=== PATIENT | female | born 1990 | race Caucasian/White ===

== ENCOUNTER → 2020-03-20 15:56 | Outpatient (BNVA) | payer OTHER, SELFPAY | PROVIDERS: PCP Internal Medicine; Visit Provider Advanced Practice Midwife | DX: Z39.2 Encounter for routine postpartum follow-up (principal) | CPT/HCPCS: 99212 ==

== ENCOUNTER → 2020-06-02 09:28 | Outpatient (BNVA) | payer OTHER, SELFPAY | PROVIDERS: PCP Internal Medicine; Visit Provider Advanced Practice Midwife | DX: Z30.430 Encounter for insertion of intrauterine contraceptive device (principal) | CPT/HCPCS: 58300; 81025; J7298 ==

== ENCOUNTER 2020-06-17 10:28 | Outpatient (REF) | payer OTHER, SELFPAY ==
[2020-06-17 12:32] LABS: MANUAL DIFF FLAG NO
[2020-06-17 12:40] LABS: Basophils Absolute Auto 0.1 X10*3/uL (0.0-0.2); Basophils Percent Auto 0.5 % (0-2); Eosinophils Absolute Auto 0.1 X10*3/uL (0.0-0.4); Eosinophils Percent Auto 0.5 % (0-4); Hematocrit 42.5 % (37-47); Imm Gran Abs Auto 0.05 X10*3/uL (0.00-0.03); Imm Gran Pct Auto 0.4 % (0.0-0.4); Lymphocytes Percent Auto 17.4 % (20-40); Mean Corpuscular HGB Conc 32.9 g/dl (31.0-35.0); Mean Corpuscular Hemoglobin 28.9 pg (27.0-33.0); Mean Corpuscular Volume 87.6 fL (80-98); Mean Platelet Volume 11.7 fL (9.4-12.3); Monocytes Absolute Auto 0.8 X10*3/uL (0.1-1.2); Monocytes Percent Auto 6.6 % (2-11); Neutrophils Absolute Auto 8.5 X10*3/uL (2.0-8.3); Neutrophils Percent Auto 74.6 % (45-73); Platelet Count 252 X10*3/uL (160-400); Red Blood Count 4.85 X10*6/uL (4.20-5.50); Red Cell Distribution Width 12.8 % (11.0-16.0); White Blood Count 11.4 X10*3/uL (4.8-10.8)
[2020-06-17 13:00] LABS: Alanine Aminotransferase 41 U/L (0-31); Albumin Level 4.5 g/dL (3.5-5.0); Alkaline Phosphatase 103 U/L (39-117); Anion Gap 11 (12-20); Aspartate Amino Transferase 24 U/L (5-31); Bilirubin Total 0.7 mg/dL (0.0-1.0); Blood Urea Nitrogen 14 mg/dL (9-16); Calcium 9.3 mg/dL (8.4-10.2); Carbon Dioxide 27 mmol/L (22-29); Chloride 104 mmol/L (96-108); Cholesterol 157 mg/dL; Estimated Glomerular Filt Rate > 60; Glucose Random 92 mg/dL (60-115); HDL Cholesterol 40 mg/dL; LDL Cholesterol Calculated 92 mg/dl; Potassium 4.1 mmol/L (3.3-5.1); Sodium 138 mmol/L (135-145); Total Protein 7.3 g/dL (6.5-8.0); Triglycerides 127 mg/dL
[2020-06-17 13:22] LABS: Thyroid Stimulating Hormone 1.11 uIU/mL (0.32-4.0)
[2020-06-18 11:21] LABS: BV Int Neg Control Negative (Negative); BV Int Pos Control Positive (Positive)
== END 2020-06-17 10:29 | disposition home or self-care (01) ==
LOC: HO.LAB 10:28
PROVIDERS: PCP Internal Medicine; Referring Provider Internal Medicine; Visit Provider Advanced Practice Midwife
DX: R10.2 Pelvic and perineal pain (principal); Z97.5 Presence of (intrauterine) contraceptive device; Z00.00 Encounter for general adult medical examination without abnormal findings; Z13.31 Encounter for screening for depression; G44.209 Tension-type headache, unspecified, not intractable; L60.0 Ingrowing nail; R63.5 Abnormal weight gain
CPT/HCPCS: 36415; 80053; 80061; 81025; 84443; 85025; 87480; 87510; 87660; 99212

== ENCOUNTER 2020-07-08 12:30 | Outpatient (REF) | payer OTHER, SELFPAY ==
--- NOTE | ~2020-07-08 | XR_ITS ---
EXAMINATION: XR FOOT LT MIN 3V, XR ANKLE LT MIN 3V CLINICAL INFORMATION: Pain left ankle COMPARISON: None. TECHNIQUE: AP, oblique, and lateral views left foot. AP and oblique views left ankle. FINDINGS: Distal tibia and fibula are intact. No widening of the ankle mortise. Talar dome intact. Normal appearance of the foot. No fracture, dislocation, or malalignment. XR/XR foot LT min 3V IMPRESSION: Normal radiographs of the left foot and ankle.
--- NOTE | ~2020-07-08 | XR_ITS ---
EXAMINATION: XR FOOT LT MIN 3V, XR ANKLE LT MIN 3V CLINICAL INFORMATION: Pain left ankle COMPARISON: None. TECHNIQUE: AP, oblique, and lateral views left foot. AP and oblique views left ankle. FINDINGS: Distal tibia and fibula are intact. No widening of the ankle mortise. Talar dome intact. Normal appearance of the foot. No fracture, dislocation, or malalignment. XR/XR ankle LT min 3V IMPRESSION: Normal radiographs of the left foot and ankle.
== END 2020-07-08 12:31 | disposition home or self-care (01) ==
LOC: HO.XRAY 12:30
PROVIDERS: PCP Internal Medicine; Visit Provider Internal Medicine
DX: M25.572 Pain in left ankle and joints of left foot (principal)
CPT/HCPCS: 73610; 73630

== ENCOUNTER 2020-07-10 07:23 | Outpatient (REF) | payer OTHER, SELFPAY ==
--- NOTE | ~2020-07-10 | XR_ITS ---
EXAMINATION: XR SHOULDER, LEFT CLINICAL INFORMATION: Shoulder pain. COMPARISON: 12/02/2018 TECHNIQUE: AP external rotation, Grashey, scapular Y, and axillary views of the left shoulder. FINDINGS: Acromioclavicular joint is intact. Redemonstrated is a chronic Hill-Sachs deformity of the humeral head. Glenohumeral joint space is maintained. No acute fracture or dislocation. Redemonstrated are presumed postoperative changes in the proximal humeral shaft. Visualized left lung is clear. XR/XR shoulder LT min 2V IMPRESSION: No evidence of acute osseous abnormality. Chronic Hill-Sachs deformity of the humeral head, and presumed postoperative changes in the proximal humeral shaft.
== END 2020-07-10 07:24 | disposition home or self-care (01) ==
LOC: HO.XRAY 07:23
PROVIDERS: PCP Internal Medicine; Visit Provider Physician Assistant
DX: M25.312 Other instability, left shoulder (principal)
CPT/HCPCS: 73030; 99212

== ENCOUNTER → 2020-07-29 10:26 | Outpatient (BNVA) | payer OTHER, SELFPAY | PROVIDERS: PCP Internal Medicine; Visit Provider Physician Assistant | DX: M76.72 Peroneal tendinitis, left leg (principal) | CPT/HCPCS: 99212 ==

== ENCOUNTER 2020-08-20 10:00 | Outpatient (RCR) | payer OTHER, SELFPAY ==
--- NOTE | 2020-07-21 13:14 | MHC.PT.EP ---
[facility] [place] Office [place] Office [place] Office [address] [phone] F: [phone] F: [phone] F: [phone] F: [phone] Physical Therapy Plan of Care Date of Evaluation: 07/21/20 Date of Surgery: 2018 Diagnosis: Other instability, L shoulder. s/p capsular plication 06/2018 Assessment: Pt is a 29 y/o RHD F with chief compliant of (L) shoulder instability beginning over last several months. PMH is significant for (L) shoulder dislocation x2 with (L) shoulder capsular plication surgery in 2019 and chronic hill-sachs deformity. Pt presents to PT today with shoulder/periscapular weakness, general shoulder hypermobility, and postural abnormalities. Additionally, pt notes popping sensation with mid-trapezius MMT testing. Pt symptoms are consistent with shoulder instability that interferes with end range movement and dynamic activity. Pt will benefit from skilled PT 2x/week for 6 weeks to improve shoulder and periscapular strength and reduce pain to aid in dynamic movement, return to active lifestyle, providing for children, and ADLs. Frequency and Duration: The patient will be seen 2x/week for 6 weeks Short Term Goals: 3 Weeks: 1) Pt will be independent in HEP to maintain gains between sessions 2) Pt will be able to self identify and correct posture Fpc Goals: 6 Weeks: 1) Pt shoulder MMT will be >4/5 to aid in shoulder stability. 2) Pt will SPADI will be <10/130 to demonstrate meaningful improvement in daily function (currently 23/130) 3.) Pt will be able to don/doff clothing with no episodes of instability Treatment Plan: Modalities to reduce pain, spasms and effusion. Manual therapy to restore motion and function. Therapeutic exercise to improve strength and flexibility. Neuromuscular re-education for posture and balance. Therapeutic activities to return to functional activities of daily living. Electronically signed by: Brisa Izaguirre PT Please sign and return to therapist. Thank you for your referral.
--- NOTE | 2020-09-01 11:57 | MHC.PT.DC ---
[facility] [place] Office [place] Office [place] Office [address] Hansel Miranda [address] [phone] F: [phone] F: [phone] F: [phone] F: [phone] Physical Therapy Discharge Report Diagnosis: Other instability, L shoulder. s/p capsular plication 06/2018 Date of Surgery: 2018 Date of Evaluation: 07/21/20 Date of Discharge: 09/01/20 Treatments to Date: 7 Cancellations to Date: 4 No Shows to Date: 2 Discharge Status: Improved Function Independent with HEP Visit Non-compliance Discharge Summary: Pt did not f/u with final visits and is d/c at this time due to noncompliance with scheduling policy. At time of last attended visit, pt reported fatigue w/ RTC strengthening today described as a muscle burning. pt educated to ensure she has adequate rest between sets. pt verbalized understanding. pt discouraged as she feels many of the exercises are harder than they should be. Educated pt that here in physical therapy the therapist selects exercises they know are going to be challenging for our patients in order to promote strength, stability, and impairment level gains to improve overall function. pt seemed content w/ this response. pt may benefit from more CKC activities to promote stability in plantigrade or quadruped per her tolerance next visit. Electronically signed by: Brisa Izaguirre PT, DPT Please sign and return to therapist. Thank you for your referral.
== END 2020-09-01 11:57 | disposition home or self-care (01) ==
LOC: HO.PT 10:00
PROVIDERS: PCP Internal Medicine; Visit Provider Physician Assistant
DX: M25.312 Other instability, left shoulder (principal)
CPT/HCPCS: 97110; 97112; 97161

== ENCOUNTER → 2020-08-21 09:05 | Outpatient (BNVA) | payer OTHER, SELFPAY | PROVIDERS: PCP Internal Medicine; Visit Provider Physician Assistant | DX: M25.312 Other instability, left shoulder (principal) | CPT/HCPCS: 99212 ==

== ENCOUNTER 2020-08-27 13:25 | Outpatient (REF) | payer OTHER, SELFPAY ==
--- NOTE | ~2020-08-27 | MR_ITS ---
EXAMINATION: MRI SHOULDER WITHOUT CONTRAST, LEFT CLINICAL INFORMATION: Instability left shoulder. Patient reports pain, weakness, dislocation x3. Patient reports prior surgery 2018. COMPARISON: X-ray left shoulder 07/10/2020. MRI 05/18/2018. TECHNIQUE: MRI of the shoulder without contrast is performed in a 1.5 Felisa high-field scanner. FINDINGS: CORACOACROMIAL ARCH: No significant acromioclavicular arthritis. No significant fluid in the subacromial subdeltoid space. Undersurface of the acromion is mildly curved, with no subacromial spur. ROTATOR CUFF: Intact. No muscle atrophy or fatty infiltration. BICEPS TENDON: Status post tenodesis. LABRUM/CAPSULE: Evidence of prior surgery, with screw/screw tract in the superior glenoid, and probably in the inferior glenoid as well. The superior labrum is small in caliber, with irregularity of the free edge, with T2 signal at the cartilage labral interface extending to the base of the labrum. The anterior labrum is difficult to visualize, with the middle glenohumeral ligament subjacent to the labrum. There is intermediate T2 signal in the expected region of the labrum, with apparent irregularity in the midportion. These findings could represent postsurgical changes, or could represent a residual or recurrent tear. Mild intermediate signal in the the region of the inferior glenohumeral ligament/capsule, evaluation limited by lack of distention. GLENOHUMERAL JOINT/MARROW: Chronic Hill-Sachs lesion in the posterior lateral humeral head. This measures approximately 1.8 cm transverse, 2.1 cm craniocaudal, depth approximately 0.7 cm. No acute marrow edema is seen. No definite bony Hill-Sachs lesion is identified. No focal cartilage defects. No significant effusion. MR/MR shoulder LT wo con IMPRESSION: 1. Chronic Hill-Sachs lesion measuring 1.8 x 2.1 x 0.7 cm. 2. Postsurgical changes in the glenoid from prior surgery. Findings in the superior labrum, and anterior labrum, with signal morphological changes as detailed above. These findings could represent postsurgical changes or represent residual/recurrent tear. 3. Mild intermediate T2 signal changes in the inferior glenohumeral ligament/capsule, evaluation limited by lack of distention.
== END 2020-08-27 13:26 | disposition home or self-care (01) ==
LOC: HO.MRI 13:25
PROVIDERS: Visit Provider Physician Assistant
DX: M25.312 Other instability, left shoulder (principal)
CPT/HCPCS: 73221

== ENCOUNTER → 2020-09-10 09:49 | Outpatient (BNVA) | payer OTHER, SELFPAY | PROVIDERS: Visit Provider Physician Assistant ==

== ENCOUNTER 2020-10-07 06:39 | Day surgery (SDC) | payer OTHER, SELFPAY ==
--- NOTE | 2020-10-05 13:36 | HO.ANESPROP2 ---
Documented by User: Diana Sherman 10/05/20 13:36 HPI - Anesthesia Eval Consult details Narrative: 29yo F for Left Shoulder Arthroscopy with capsular plication,poss labrum repair PMFSH Active Problems Active Problems: All Active Problems (Updated 07/29/20 @ 10:54 by Timbo Sebastian PA-C) Peroneal tendinitis of left lower leg (Acute) Other instability, left shoulder (Acute) Left shoulder pain (Acute) Encounter for assessment (Acute) Past Medical History Medical History History of asthma IUD (intrauterine device) in place Family History Family History Mother Heart attack Stroke Surgical History Surgical History Hx of cholecystectomy Hx of shoulder surgery Social History Social History Alcohol intake: current Use of substances other than those prescribed or required for medical reasons: Yes Have you been hit, kicked, punched, or otherwise hurt by someone within the past year? If so, by whom?: No Are you DNR?: No Advance Directives: No Advance Directives Information Provided: Yes Current occupational status: unemployed Current occupation: right handed Sexual orientation: Straight/Heterosexual Gender identity: female Meds Allergies Allergy/AdvReac Type Severity Reaction Status Date / Time No Known Allergies Allergy Verified 07/29/20 10:32 [No Known Allergies*] Exam Exam Date and Time: October 05, 2020 1336 Narrative Narrative: Laboratory Tests 06/17/20 06/17/20 11:45 11:45 WBC 11.4 H Hgb 14.0 Hct 42.5 Plt Count 252 Sodium 138 Potassium 4.1 Chloride 104 Carbon Dioxide 27 BUN 14 Creatinine 0.80 Assessment and Plan Assessment Anesthesia Assessment: Chart Reviewed Documented by User: Ev Claros 10/07/20 09:03 PMFSH Past Medical History Medical History History of asthma IUD (intrauterine device) in place Family History Family History Mother Heart attack Stroke Family history of problems with anesthesia: No Surgical History Surgical History Hx of cholecystectomy Hx of shoulder surgery History of Problems with Anesthesia: No Social History Social History Alcohol intake: current Use of substances other than those prescribed or required for medical reasons: Yes Have you been hit, kicked, punched, or otherwise hurt by someone within the past year? If so, by whom?: No Are you DNR?: No Advance Directives: No Advance Directives Information Provided: Yes Current occupational status: unemployed Current occupation: right handed Sexual orientation: Straight/Heterosexual Gender identity: female Meds Allergies Allergy/AdvReac Type Severity Reaction Status Date / Time No Known Allergies Allergy Verified 07/29/20 10:32 [No Known Allergies*] Exam Height,Weight and Vital Signs: Vital Signs Temp Pulse Resp BP Pulse Ox 10/07/20 06:51 97.6 F 70 18 127/82 98 Pertinent Lab Results Pertinent Lab Results: Laboratory Results - last 24 hr 10/07/20 06:40 Urine Test NEGATIVE Airway Mallampati Class: I TM Dist: >3cm Neck ROM: Full Heart: RRR Lungs: CTAB Assessment and Plan Assessment Anesthesia Assessment: Anesthesia Plan Discussed and Chart Reviewed Final Anesthetic Review NPO: Yes ASA Class: II Final Preanesthetic Review: No Changes in Pt Med Stat, Meds/Allgs Chart Reviewed, Consent Obtained/Reviewed and Anes Risks/Benef Reviewed Patient Risk: Low Procedure Risk: Low Assessment/Block/Sedation in SS: Assess/Block/Sedation-SS Anesthetic Plan Anesthetic Plan: GA and Regional Block (Left brachial plexus block) Disposition: Standard PACU
[2020-10-07] VITALS (13 sets, daily range): BP systolic 105–154; BP diastolic 58–82; PULSE 70–109; RESP 14–18; TEMP 36.3–36.4; O2SAT 94–98; BMI 36.8
[2020-10-07 07:07] LABS: UPreg QC Valid YES; Urine Pregnancy NEGATIVE (NEGATIVE)
[2020-10-07] MEDS: Lactated Ringers 1,000 ML 100 ML IVCONT (07:25)
--- NOTE | 2020-10-07 07:27 | MHC.SHP ---
Pre-Procedural Eval Section A The patient is an INPATIENT: No Changes since office visit: Yes Patient answered all questions; No Cold of Flu in the past 2 weeks, No New Medical Problems and No Changes in Medication The History & Physical has been completed within 30 days and I have reviewed it.: Yes Section B Chief Complaint: instability left shoulder Allergies: Allergies Allergy/AdvReac Type Severity Reaction Status Date / Time No Known Allergies Allergy Verified 07/29/20 10:32 [No Known Allergies*] Plan I have reviewed the history and physical and performed a pertinent physical examination on my patient. No changes have occurred unless specified.
--- NOTE | 2020-10-07 10:00 | P.BOP_ITS ---
Brief Operative Note Date of Service: 10/07/20 Pre-op diagnosis: left shoulder instability Post-op diagnosis: same Procedure: left shoulder capsular plication Implants: Gore and Nephew 2.7 alvin-raptor x 2 Surgeon: Cedrick Quevedo MD Anesthesia: GETA Was an Professor Of Forest Planning used for this Procedure?: Yes Professor Of Forest Planning: Genevieve Liu Estimated blood loss (mL): 5 IV fluids (mL): 800 Pathology: none sent Condition: stable Disposition: PACU
--- NOTE | 2020-10-07 10:11 | P.OP_ITS ---
Operative Note Operative Note Date of Service: 10/07/20 Narrative: Pre-op diagnosis: left shoulder instability Post-op diagnosis: same Procedure: left shoulder capsular plication Implants: Gore and Nephew 2.7 alvin-raptor x 2 Surgeon: Cedrick Quevedo MD Anesthesia: GETA Was an Amf Mechanic used for this Procedure?: Yes Amf Mechanic: Genevieve Liu Estimated blood loss (mL): 5 IV fluids (mL): 800 Pathology: none sent Condition: stable Disposition: PACU Procedure in detail: Patient was brought to the operating room and placed supine on the surgical table. She was prepped and draped in standard sterile fashion and a time out was called to indentify proper site, proper procedure and IV a ntibiotics per weight were administered. I began by making a stab incision posterolaterally and placing my blunt trocar atraumatically into the glenohumeral joint. It and insufflated the joint placed my 30 degree arthroscope. I then made an outside and anterior portal just proximal to the subscapularis. Once this was done I examined the glenohumeral joint. There is a small anterior humeral head grade 2 cartilage lesion but the glenoid was intact. Posteriorly the labrum was intact and superiorly. The biceps tendon had previously been addressed surgically and was not present. Subscapularis was intact. There was no undersurface rotator cuff tear. There was a positive drive-through sign with anterior 2+ instability when anesthetized. Began by removing the previous suture which show were present at the rim of the anterior inferior glenoid but the capsule was patulous. I used a nitinol wire passer to collect tissue inferiorly from the inferior glenohumeral ligament and the remains of the inferior capsule. Fiber tape x2 was passed through the tissue. I placed 1 double loaded 2.7 micro raptor suture at approximately 7 o'clock position and tension the capsule proximally. I then repeated this process more proximally and was able to establish a excellent bumper of substantial capsular tissue from 06:00 o'clock to 9 o'clock position. This tightened her up significantly and drive-through sign was no longer present. Once this was done I removed all instrumentation. Portals were closed with nylon. Patient placed in sterile dressing extubated brought to recovery room in stable condition were no known complications.
[2020-10-07] MEDS: Ketorolac Tromethamine 15 MG/ML VIAL IVPUSH (10:23)
[2020-10-07] MEDS: ondansetron HCL 4 MG/2 ML VIAL IVPUSH (10:26)
[2020-10-07] MEDS: fentaNYL citrate/PF 100 MCG/2 ML VIAL 25 MCG IVPUSH ×2 (10:35→10:40)
[2020-10-07] MEDS: oxyCODONE HCl Immed Release 5 MG TABLET PO (10:50)
== END 2020-10-07 12:48 | disposition home or self-care (01) ==
PROVIDERS: Nurse Practitioner; PCP Internal Medicine; Visit Provider Orthopaedic Surgery
PROC: (CPT 29805; principal; 2020-10-07 08:10)
DX: M25.312 Other instability, left shoulder (principal); J45.909 Unspecified asthma, uncomplicated
CPT/HCPCS: 29806; 81025; J0171; J0690; J1100; J1885; J2250; J2405; J3010

== ENCOUNTER → 2020-10-19 08:52 | Outpatient (BNVA) | payer OTHER, SELFPAY | PROVIDERS: PCP Internal Medicine; Visit Provider Physician Assistant | DX: M25.312 Other instability, left shoulder (principal) | CPT/HCPCS: 99212 ==

== ENCOUNTER → 2020-10-20 15:21 | Outpatient (BNVA) | payer OTHER, SELFPAY | PROVIDERS: PCP Internal Medicine; Visit Provider Advanced Practice Midwife ==

== ENCOUNTER 2020-10-21 09:57 | Outpatient (REF) | payer OTHER, SELFPAY ==
[2020-10-21 13:59] LABS: CT PCR NOT DETECTED (Not Detect.); NG PCR NOT DETECTED (Not Detect.)
[2020-10-22 09:40] LABS: BV Int Neg Control Negative (Negative); BV Int Pos Control Positive (Positive)
== END 2020-10-21 09:58 | disposition home or self-care (01) ==
LOC: HO.LAB 09:57
PROVIDERS: PCP Internal Medicine; Visit Provider Advanced Practice Midwife
DX: Z30.430 Encounter for insertion of intrauterine contraceptive device (principal); N89.8 Other specified noninflammatory disorders of vagina; N93.9 Abnormal uterine and vaginal bleeding, unspecified; Z20.2 Contact with and (suspected) exposure to infections with a predominantly sexual mode of transmission
CPT/HCPCS: 58300; 81025; 87480; 87491; 87510; 87591; 87660

== ENCOUNTER → 2020-12-21 13:21 | Outpatient (BNVA) | payer OTHER, SELFPAY | PROVIDERS: Visit Provider Physician Assistant | DX: M25.312 Other instability, left shoulder (principal) | CPT/HCPCS: 99212 ==

== ENCOUNTER 2020-12-23 17:00 | Outpatient (RCR) | payer OTHER, SELFPAY ==
--- NOTE | 2020-11-09 17:59 | MHC.PT.EP ---
[facility] [place] Office [place] Office [place] Office [address] Hansel Miranda [address] [phone] F: [phone] F: [phone] F: [phone] F: [phone] Physical Therapy Plan of Care Date of Evaluation: Date of Surgery: 10/07/20 Diagnosis: L anterior capsular plication 10/07/20 Assessment: pt presents to physical therapy with pain, decreased range of motion, decreased strength, impaired functional mobility, and impaired postural awareness. pt is a good candidate for skilled PT due to age, potential remediation of impairments, typical disease/condition progression and prognosis, comorbidities, and motivation. pt would benefit from tailored strengthening and stretching exercise program, functional training, postural re-training, neuromuscular re-education, modalities as needed for pain, equipment safety demonstration. Frequency and Duration: The patient will be seen 2x/wk for 8 wks Short Term Goals: pt will be I w/ HEP to promote self-management of condition. pt will improve L shoulder ER by 30 degrees to promote ease in upper body ADLs. Residential Goals: pt will report a statistically significant improvement in self-reported outcome measure, SPADI, to promote return to PLOF. pt will report <1/10 L shoulder pain w/ forward elevation lifting 3# object from shelf to promote return to dimensional inspector. Treatment Plan: Modalities to reduce pain, spasms and effusion. Manual therapy to restore motion and function. Therapeutic exercise to improve strength and flexibility. Neuromuscular re-education for posture and balance. Therapeutic activities to return to functional activities of daily living. Electronically signed by: Kaykay Donohue PT, DPT Please sign and return to therapist. Thank you for your referral.
--- NOTE | 2020-12-23 18:02 | MHC.PT.DC ---
[facility] [place] Office [place] Office [place] Office [address] Hansel Miranda [address] [phone] F: [phone] F: [phone] F: [phone] F: [phone] Physical Therapy Discharge Report Diagnosis: L anterior capsular plication 10/07/20 Date of Surgery: 10/07/20 Date of Evaluation: 11/09/20 Date of Discharge: 12/23/20 Treatments to Date: 7 Cancellations to Date: 7 No Shows to Date: 0 Discharge Status: Improved Function Independent with HEP Discharge Summary: Today was the patient's last scheduled visit and she feels she is able to manage her symptoms and continue to progress her strength at home. She was taken through her home exercise program and the current weights she was using for each exercise while here in physical therapy. She was advised to purchase an over the door lavell system to maintain her range of motion. She was educated on safe and proper weight progression to improve strength. The patient was given an updated HEP list and feels confident she can continue to manage her post-operative status at home. She is discharged from this physical therapy plan of care per her request. Electronically signed by: Kaykay Donohue PT, DPT Please sign and return to therapist. Thank you for your referral.
== END 2020-12-23 18:02 | disposition home or self-care (01) ==
LOC: HO.PT 17:00
PROVIDERS: Visit Provider Physician Assistant
DX: M25.312 Other instability, left shoulder (principal); M25.512 Pain in left shoulder
CPT/HCPCS: 97110; 97112; 97140; 97161

== ENCOUNTER 2021-01-06 09:47 | Outpatient (REF) | payer OTHER, SELFPAY | END 2021-01-06 09:48 | disposition home or self-care (01) | LOC: HO.LAB 09:47 | PROVIDERS: Visit Provider Advanced Practice Midwife | DX: Z01.419 Encounter for gynecological examination (general) (routine) without abnormal findings (principal); Z87.42 Personal history of other diseases of the female genital tract | CPT/HCPCS: 88142 ==

== ENCOUNTER 2021-01-11 17:07 | Outpatient (REF) | payer OTHER, SELFPAY ==
[2021-01-11 18:01] LABS: Amphetamine Screen Urine Not Detected (Not Detect); Barbiturates, Urine Not Detected (Not Detect); Benzodiazepines Screen Urine Not Detected (Not Detect); Cannabinoid Screen Urine Not Detected (Not Detect); Cocaine Screen Urine Not Detected (Not Detect); Fentanyl, urine Not Detected (Not Detect); Opiate Screen Urine Not Detected (Not Detect); Phencyclidine Screen Urine Not Detected (Not Detect)
[2021-01-12 09:40] LABS: Rubeola IgG (Measles) >300.00 AU/mL
== END 2021-01-11 17:08 | disposition home or self-care (01) ==
LOC: HO.LAB 17:07
PROVIDERS: PCP Internal Medicine; Visit Provider Internal Medicine
DX: Z01.84 Encounter for antibody response examination (principal); Z13.89 Encounter for screening for other disorder; G44.209 Tension-type headache, unspecified, not intractable
CPT/HCPCS: 80307; 86735; 86762; 86765

== ENCOUNTER 2021-02-21 17:50 | Emergency (ER) | payer OTHER, SELFPAY | END 2021-02-21 19:41 | disposition left against medical advice (07) | PROVIDERS: Emergency Provider Emergency Medicine; PCP Internal Medicine | DX: S61.219A Laceration without foreign body of unspecified finger without damage to nail, initial encounter (principal); X58.XXXA Exposure to other specified factors, initial encounter; Y93.9 Activity, unspecified; Y92.9 Unspecified place or not applicable; Y99.9 Unspecified external cause status ==

== ENCOUNTER 2021-11-30 11:01 | Emergency (ER) | payer OTHER, SELFPAY ==
--- NOTE | 2021-11-30 | ECG_ITS ---
Test Reason : lighthead Blood Pressure : / mmHG Vent. Rate : 055 BPM Atrial Rate : 055 BPM P-R Int : 140 ms QRS Dur : 086 ms QT Int : 428 ms P-R-T Axes : 025 049 053 degrees QTc Int : 409 ms Sinus bradycardia Otherwise normal ECG No previous ECGs available Referred By: Generic ED Physician Electronically Signed By:Vipin Carver
[2021-11-30 11:07] VITALS: BP 133/82; PULSE 70; O2SAT 97
[2021-11-30 13:10] VITALS: BP 121/65; PULSE 58; RESP 18; TEMP 36.6; O2SAT 100; BMI 36.6
[2021-11-30 13:26] LABS: MANUAL DIFF FLAG NO
[2021-11-30 13:28] LABS: Basophils Percent Auto 0.3 % (0-2); Eosinophils Absolute Auto 0.1 X10*3/uL (0.0-0.4); Eosinophils Percent Auto 0.6 % (0-4); Hematocrit 44.2 % (37.0-47.0); Hemoglobin 15.1 g/dl (12.0-16.0); Imm Gran Abs Auto 0.05 X10*3/uL (0.00-0.03); Imm Gran Pct Auto 0.4 % (0.0-0.4); Lymphocytes Absolute Auto 2.2 X10*3/uL (1.2-4.9); Lymphocytes Percent Auto 18.5 % (20-40); Mean Corpuscular HGB Conc 34.2 g/dl (31.0-35.0); Mean Corpuscular Hemoglobin 29.3 pg (27.0-33.0); Mean Corpuscular Volume 85.7 fL (80.0-98.0); Mean Platelet Volume 10.5 fL (9.4-12.3); Monocytes Absolute Auto 0.5 X10*3/uL (0.1-1.2); Monocytes Percent Auto 4.5 % (2-11); Neutrophils Percent Auto 75.7 % (45-73); Platelet Count 246 X10*3/uL (160-400); Red Blood Count 5.16 X10*6/uL (4.20-5.50); Red Cell Distribution Width 12.3 % (11.0-16.0)
[2021-11-30 13:40] LABS: Appearance Urine CLEAR; Color Urine STRAW; Glucose Urine UA NEG (NEG); Leukocyte Esterase Urine TRACE (NEG); Nitrite Urine NEG (NEG); Specific Gravity - Urine <= 1.005 (1.005-1.025); UACC Culture Trigger NO; Urine Blood TRACE (NEG); Urine Ketones NEG (NEG); Urine Protein NEG (NEG-TRACE)
[2021-11-30 13:44] LABS: Anion Gap 9 (12-20); Blood Urea Nitrogen 11 mg/dL (9-16); Calcium 9.5 mg/dL (8.4-10.2); Carbon Dioxide 25 mmol/L (22-29); Chloride 105 mmol/L (96-108); Creatinine Clr Calc Pharmacy 102.9; Estimated Glomerular Filt Rate > 60; Glucose Random 96 mg/dL (60-115); Potassium 4.4 mmol/L (3.3-5.1); Sodium 135 mmol/L (135-145)
[2021-11-30 13:47] LABS: UPreg QC Valid YES; Urine Pregnancy NEGATIVE (NEGATIVE)
[2021-11-30 14:01] LABS: Bacteria Urine TRACE /LPF; RBC Urine 0-2 /HPF (0); Squamous Epithelial Cell Urine 1+ /LPF
--- NOTE | 2021-11-30 19:10 | ED.DIZZY ---
HPI - Dizziness General Chief Complaint: Dizziness Stated Complaint: LIGHT HEADED, DIZZY Source: patient and EMS Mode of arrival: EMS Limitations: no limitations History of Present Illness HPI Narrative: 30-year-old female presents via EMS for lightheaded dizziness that started during a workout. She stated that she also had some changes in vision most likely due to the dizziness. She does report starting sertraline approximate 2 weeks ago. She does work out on a regular basis and was not doing anything extraordinarily strenuous. She does not report chest pain or pressure, palpitations, shortness of breath, abdominal pain, abdominal distention, loss of balance, edema, and pain on inspiration. MD elicited complaint: dizziness, lightheadedness and near syncope Onset (ago): hour(s) (Within the hour of arrival) Timing: sudden onset Severity: moderate Description: room spinning , lightheadedness and near-syncope Context: exertion and other (New medication) History of similar symptoms: No Exacerbating factors: movement/ambulation Relieving factors: nothing Associated symptoms: denies other symptoms Stroke scale total: 0 Related Data Home Medications Medication Instructions Recorded Confirmed amitriptyline 25 mg tablet 25 mg PO BEDTIME 12/21/20 clindamycin phosphate 1 % lotion topical QAM 12/21/20 norethindrone acetate 1 mg-ethinyl 1 tab PO DAILY 12/21/20 estradiol 20 mcg tablet (Junel) tretinoin 0.025 % topical cream appl topical DIRECTED 12/21/20 tretinoin 0.05 % topical cream appl topical 12/21/20 Previous Rx's Medication Instructions Recorded oxycodone-acetaminophen 5 mg-325 1 tab PO Q6H PRN pain (scale score 10/07/20 mg tablet (Percocet) 4-6) 7 days #28 tabs nitrofurantoin 100 mg PO Q12H 7 days #14 caps 11/30/21 monohydrate/macrocrystals 100 mg capsule (Macrobid) Allergies Allergy/AdvReac Type Severity Reaction Status Date / Time No Known Allergies Allergy Verified 01/06/21 09:59 [No Known Allergies*] Review of Systems Review of Systems: Constitutional: No Fever, No Chills ENT/Mouth: No Ear Pain, No Hoarseness, No sore throat Eyes: No Eye Pain, No Swelling, No Redness, No Foreign Body Cardiovascular: No Chest Pain, No SOB Respiratory: No Cough, No Dyspnea Gastrointestinal: No Nausea, No Vomiting, No Diarrhea, No abdominal Pain Genitourinary: No Dysuria, No Hematuria Musculoskeletal: No joint pain, No Myalgias, No Joint Swelling Skin: No Skin lacerations, No rash Neuro: No Weakness, No Numbness, No Paresthesias, No Loss of Consciousness, positive Dizziness, No Headache Psych: No Anxiety/Panic, No Depression Heme/Lymph: no easy bruising, no Lymphadenopathy Endocrine: No Polyuria, No Polydipsia Yes all other systems are reviewed and are negative FOR[facility]LY [facility], [facility] Past Medical History Attestation statement: The following information was validated with the patient. Source: old records reviewed Medical History History of asthma IUD (intrauterine device) in place Surgical History Hx of cholecystectomy Hx of shoulder surgery Family History Family History Mother Heart attack Stroke Social History Social History Alcohol intake: current Advance Directives: No Advance Directives Information Provided: Yes Current occupational status: unemployed Current occupation: right handed Sexual orientation: Straight/Heterosexual Gender identity: Female Physical Exam Vital Signs: Vital Signs: Last Vital Signs Temp 98.2 F 11/30/21 19:32 Pulse 61 11/30/21 19:32 Resp 16 11/30/21 19:32 BP 106/65 11/30/21 19:32 Pulse Ox 98 11/30/21 19:32 O2 Del Method 11/30/21 19:32 BMI result Body Mass Index 36.6 Appearance: Alert. Oriented X3. No acute distress. Eyes: Pupils equal, round and reactive to light. ENT: Pharynx normal. Neck: Normal inspection. Neck supple. CVS: Normal heart rate and rhythm. Pulses normal. Respiratory: No respiratory distress. Breath sounds normal. Abdomen: Soft and nontender. Skin: Skin warm and dry. Normal skin color. Normal skin turgor. Extremities: No lower extremity edema. Moves all extremities against resistance. Neuro: No motor deficit. No sensory deficit. Cranial nerves 2-12 intact Course Course Course Narrative: 30-year-old female presents via EMS for evaluation for dizziness, lightheadedness, and visual changes that began while she was working out. Symptoms have all resolved at this time. Patient has been in the waiting room for approximately 5 hours. Labs were drawn while patient was in the emergency department waiting room. There is a white count of 12.0, trace leukocyte esterase in the urinalysis with a negative urine test. Patient is afebrile, appears nontoxic, and has no physical complaints at this time. HEENT exam is normal. No focal neural deficits. While UTI does seem likely, will order COVID test. Will treat for UTI at this time with Macrobid. 20:00 COVID test is positive. Will discharge home with supportive measures and UTI treatment. All patient questions answered by this DIPPER AND DRIER. Patient verbalized understanding of and agrees to plan of care discharge home. Verbalized understanding signs and symptoms indicating need for emergent intervention. MDM - Dizziness MDM Narrative Medical decision making narrative: viral syndrome, dehydration, uti, Differential Diagnosis Differential diagnosis: Likely orthostatic hypotension Medical Records Attestation: I reviewed the patient's medical records. Lab Data Attestation: I reviewed the patient's lab results. Result diagrams: 11/30/21 13:20 11/30/21 13:20 Labs: Lab Results 11/30/21 11/30/21 11/30/21 Range/Units 13:16 13:16 13:20 WBC 12.0 H (4.8-10.8) X10*3/uL RBC 5.16 (4.20-5.50) X10*6/uL Hgb 15.1 (12.0-16.0) g/dl Hct 44.2 (37.0-47.0) % MCV 85.7 (80.0-98.0) fL MCH 29.3 (27.0-33.0) pg MCHC 34.2 (31.0-35.0) g/dl RDW 12.3 (11.0-16.0) % Plt Count 246 (160-400) X10*3/uL MPV 10.5 (9.4-12.3) fL Immature Gran % (Auto) 0.4 (0.0-0.4) % Neut % (Auto) 75.7 H (45-73) % Lymph % (Auto) 18.5 L (20-40) % [place] % (Auto) 4.5 (2-11) % Eos % (Auto) 0.6 (0-4) % Baso % (Auto) 0.3 (0-2) % Lymph # (Auto) 2.2 (1.2-4.9) X10*3/uL [place] # (Auto) 0.5 (0.1-1.2) X10*3/uL Eos # (Auto) 0.1 (0.0-0.4) X10*3/uL Baso # (Auto) 0.0 (0.0-0.2) X10*3/uL Abs Immat Gran (auto) 0.05 H (0.00-0.03) X10*3/uL Absolute Neuts (auto) 9.0 H (2.0-8.3) x10*3/uL Absolute Nucleated RBC 0.000 (0.0-0.012) X10*3/uL Nucleated RBC % (auto) 0.0 (0.0-0.2) /100WBC Sodium (135-145) mmol/L Potassium (3.3-5.1) mmol/L Chloride (96-108) mmol/L Carbon Dioxide (22-29) mmol/L Anion Gap (12-20) BUN (9-16) mg/dL Creatinine (0.5-1.4) mg/dL Estim Creat Clear Calc Estimated GFR Random Glucose (60-115) mg/dL Calcium (8.4-10.2) mg/dL Urine Color STRAW Urine Appearance CLEAR Urine pH 6.0 (5.0-8.0) Ur Specific [place] <= 1.005 (1.005-1.025) Urine Protein NEG (NEG-TRACE) MG/DL Urine Glucose (UA) NEG (NEG) MG/DL Urine Ketones NEG (NEG) MG/DL Urine Blood TRACE (NEG) Urine Nitrite NEG (NEG) Ur Leukocyte Esterase TRACE H (NEG) Urine RBC 0-2 (0) /HPF Urine WBC 1-4 (0-4) /HPF Ur Squamous Epith Cells 1+ /LPF Urine Bacteria TRACE /LPF Urine Test NEGATIVE (NEGATIVE) COVID-19 (ELOINA) (Negative) COVID-19 Clin Com 11/30/21 11/30/21 Range/Units 13:20 19:35 WBC (4.8-10.8) X10*3/uL RBC (4.20-5.50) X10*6/uL Hgb (12.0-16.0) g/dl Hct (37.0-47.0) % MCV (80.0-98.0) fL MCH (27.0-33.0) pg MCHC (31.0-35.0) g/dl RDW (11.0-16.0) % Plt Count (160-400) X10*3/uL MPV (9.4-12.3) fL Immature Gran % (Auto) (0.0-0.4) % Neut % (Auto) (45-73) % Lymph % (Auto) (20-40) % [place] % (Auto) (2-11) % Eos % (Auto) (0-4) % Baso % (Auto) (0-2) % Lymph # (Auto) (1.2-4.9) X10*3/uL [place] # (Auto) (0.1-1.2) X10*3/uL Eos # (Auto) (0.0-0.4) X10*3/uL Baso # (Auto) (0.0-0.2) X10*3/uL Abs Immat Gran (auto) (0.00-0.03) X10*3/uL Absolute Neuts (auto) (2.0-8.3) x10*3/uL Absolute Nucleated RBC (0.0-0.012) X10*3/uL Nucleated RBC % (auto) (0.0-0.2) /100WBC Sodium 135 (135-145) mmol/L Potassium 4.4 (3.3-5.1) mmol/L Chloride 105 (96-108) mmol/L Carbon Dioxide 25 (22-29) mmol/L Anion Gap 9 L (12-20) BUN 11 (9-16) mg/dL Creatinine 0.82 (0.5-1.4) mg/dL Estim Creat Clear Calc 102.9 Estimated GFR > 60 Random Glucose 96 (60-115) mg/dL Calcium 9.5 (8.4-10.2) mg/dL Urine Color Urine Appearance Urine pH (5.0-8.0) Ur Specific [place] (1.005-1.025) Urine Protein (NEG-TRACE) MG/DL Urine Glucose (UA) (NEG) MG/DL Urine Ketones (NEG) MG/DL Urine Blood (NEG) Urine Nitrite (NEG) Ur Leukocyte Esterase (NEG) Urine RBC (0) /HPF Urine WBC (0-4) /HPF Ur Squamous Epith Cells /LPF Urine Bacteria /LPF Urine Test (NEGATIVE) COVID-19 (ELOINA) Positive A (Negative) COVID-19 Clin Com See Note Discharge Plan Discharge Clinical Impression: UTI (urinary tract infection), COVID-19 Patient Disposition: Home, Self-Care Instructions: Covid-19 Viral Syndrome and Novel Coronavirus (ED) Hey/Ath, Urinary Tract Infection in Women (ED), COVID-19 (Coronavirus Disease 2019) (ED) Additional Instructions: You were evaluated for dizziness and lightheadedness while working out this morning. You tested positive for COVID-19. Please maintain isolation per State and Federal guidelines. Follow-up with primary care provider. Drink plenty of fluids. Alternate Tylenol 650 mg every 6 hours as needed and Motrin 600 mg every 6 hours as needed for fever and muscle aches. Write down what time take these medications prevent accidental overdose. Follow-up with primary care provider. Urinalysis is positive for UTI. Please take Macrobid 100 mg every 12 hours for the next 7 days. Drink plenty of fluids. Return to the emergency department for any new, concerning, or worsening symptoms. Prescriptions: New nitrofurantoin monohyd/m-cryst [Macrobid] 100 mg capsule 100 mg PO Q12H 7 Days Qty: 14 0RF Rx Instructions: must administer with a meal/food No Action oxycodone-acetaminophen [Percocet] 5-325 mg tablet 1 tab PO Q6H PRN (Reason: pain (scale score 4-6)) 7 Days Qty: 28 0RF clindamycin phosphate 1 % lotion topical QAM amitriptyline 25 mg tablet 25 mg PO BEDTIME tretinoin 0.05 % cream topical tretinoin 0.025 % cream topical DIRECTED norethindrone ac-eth estradiol [June06/03 (21)] 1-20 mg-mcg tablet 1 tab PO DAILY Stand Alone Forms: Work/School Release Interventions: ED Discharge Assessment Last Done: 11/30/21 20:46 Discharge Date/Time: 11/30/21 20:46
[2021-11-30 19:32] VITALS: BP 106/65; PULSE 61; RESP 16; TEMP 36.8; O2SAT 98
[2021-11-30 19:48] LABS: COVID-19 Test Positive (Negative); IDNOW Serial# 55D5AD1C
[2021-11-30] MEDS: Nitrofurantoin Monohyd/M-Cryst 100 MG CAPSULE PO (19:53)
== END 2021-11-30 20:46 | disposition home or self-care (01) ==
PROVIDERS: Nurse Practitioner Family; Emergency Provider Internal Medicine; PCP Internal Medicine
DX: U07.1 COVID-19 (principal); N39.0 Urinary tract infection, site not specified; Z20.822 Contact with and (suspected) exposure to COVID-19; R42 Dizziness and giddiness
CPT/HCPCS: 36415; 80048; 81001; 81025; 85025; 87635; 93005; 99283; 99285

== ENCOUNTER 2021-12-23 09:20 | Outpatient (REF) | payer OTHER, SELFPAY ==
[2021-12-23 09:44] LABS: MANUAL DIFF FLAG NO
[2021-12-23 10:38] LABS: Basophils Absolute Auto 0.1 X10*3/uL (0.0-0.2); Basophils Percent Auto 0.6 % (0-2); Eosinophils Absolute Auto 0.1 X10*3/uL (0.0-0.4); Eosinophils Percent Auto 0.5 % (0-4); Hematocrit 41.5 % (37.0-47.0); Hemoglobin 13.9 g/dl (12.0-16.0); Imm Gran Abs Auto 0.05 X10*3/uL (0.00-0.03); Imm Gran Pct Auto 0.4 % (0.0-0.4); Lymphocytes Absolute Auto 1.8 X10*3/uL (1.2-4.9); Lymphocytes Percent Auto 13.1 % (20-40); Mean Corpuscular HGB Conc 33.5 g/dl (31.0-35.0); Mean Corpuscular Hemoglobin 29.3 pg (27.0-33.0); Mean Corpuscular Volume 87.6 fL (80.0-98.0); Mean Platelet Volume 11.4 fL (9.4-12.3); Monocytes Absolute Auto 0.8 X10*3/uL (0.1-1.2); Monocytes Percent Auto 5.6 % (2-11); Neutrophils Absolute Auto 11.2 x10*3/uL (2.0-8.3); Neutrophils Percent Auto 79.8 % (45-73); Platelet Count 221 X10*3/uL (160-400); Red Blood Count 4.74 X10*6/uL (4.20-5.50); Red Cell Distribution Width 12.7 % (11.0-16.0)
[2021-12-23 11:33] LABS: Thyroid Stimulating Hormone 1.38 uIU/mL (0.32-4.0)
[2021-12-23 12:13] LABS: Cholesterol 142 mg/dL; HDL Cholesterol 46 mg/dL; LDL Cholesterol Calculated 83 mg/dl; Triglycerides 69 mg/dL
== END 2021-12-23 09:21 | disposition home or self-care (01) ==
LOC: HO.LAB 09:20
PROVIDERS: PCP Internal Medicine; Visit Provider Internal Medicine
DX: J31.0 Chronic rhinitis (principal); J31.2 Chronic pharyngitis; M54.50 Low back pain, unspecified; R10.30 Lower abdominal pain, unspecified; R53.83 Other fatigue; U09.9 Post COVID-19 condition, unspecified
CPT/HCPCS: 36415; 80061; 84443; 85025

== ENCOUNTER 2022-03-10 11:19 | Outpatient (REF) | payer OTHER, SELFPAY ==
[2022-03-11 05:20] LABS: CT PCR NOT DETECTED (Not Detect.); NG PCR NOT DETECTED (Not Detect.)
[2022-03-11 09:08] LABS: BV Int Neg Control Negative (Negative); BV Int Pos Control Positive (Positive)
[2022-03-29 06:37] LABS: HPV mRNA E6/E7 rflx Not Detected (Not Detected)
== END 2022-03-10 11:20 | disposition home or self-care (01) ==
LOC: HO.LNP 11:19
PROVIDERS: Visit Provider Advanced Practice Midwife
DX: Z01.419 Encounter for gynecological examination (general) (routine) without abnormal findings (principal)
CPT/HCPCS: 87480; 87491; 87510; 87591; 87624; 87660; 88142

== ENCOUNTER 2022-07-06 08:28 | Outpatient (REF) | payer OTHER, SELFPAY ==
--- NOTE | ~2022-07-06 | XR_ITS ---
EXAMINATION: XR WRIST, LEFT CLINICAL INFORMATION: Pain. COMPARISON: No similar priors. TECHNIQUE: PA, lateral, and oblique views of the left wrist. FINDINGS: No acute fractures or subluxation. Carpal rows are maintained. No abnormal soft tissue calcifications. Diffuse nonspecific soft tissue swelling. XR/XR wrist LT min 3V IMPRESSION: 1. No acute fractures or subluxation. 2. Diffuse nonspecific soft tissue swelling. If symptoms persist, consider correlation with a CT or preferably MRI of the area concerned.
== END 2022-07-06 08:29 | disposition home or self-care (01) ==
LOC: HO.HOSX 08:28
PROVIDERS: PCP Internal Medicine; Visit Provider Physician Assistant
DX: M67.432 Ganglion, left wrist (principal); G56.03 Carpal tunnel syndrome, bilateral upper limbs
CPT/HCPCS: 73110; 99202

== ENCOUNTER 2022-09-08 12:06 | Outpatient (REF) | payer OTHER, SELFPAY ==
--- NOTE | 2022-09-08 10:00 | EMG_ITS ---
bilateral median and ulnar motor and sensory studies were performed. Bilateral radial and sensory studies were performed and paraspinal muscles were tested with a needle. 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 There was no evidence of median neuropathy. MD ASHLEY Corbett/VIJAYA / [phone]
== END 2022-09-08 12:07 | disposition home or self-care (01) ==
LOC: HO.NEURO 12:06
PROVIDERS: PCP Internal Medicine; Visit Provider Physician Assistant
DX: G56.03 Carpal tunnel syndrome, bilateral upper limbs (principal); M67.432 Ganglion, left wrist
CPT/HCPCS: 95886; 95911

== ENCOUNTER → 2022-10-05 08:25 | Outpatient (BNVA) | payer OTHER, SELFPAY | PROVIDERS: PCP Internal Medicine; Visit Provider Orthopaedic Surgery | DX: G56.23 Lesion of ulnar nerve, bilateral upper limbs (principal); M67.432 Ganglion, left wrist; R20.0 Anesthesia of skin | CPT/HCPCS: 99212 ==

== ENCOUNTER 2023-01-10 15:22 | Outpatient (REF) | payer OTHER, SELFPAY ==
[2023-01-10 15:41] LABS: MANUAL DIFF FLAG NO
[2023-01-10 17:00] LABS: Basophils Absolute Auto 0.1 X10*3/uL (0.0-0.2); Basophils Percent Auto 0.6 % (0-2); Eosinophils Absolute Auto 0.1 X10*3/uL (0.0-0.4); Eosinophils Percent Auto 0.6 % (0-4); Hematocrit 35.7 % (37.0-47.0); Hemoglobin 12.2 g/dl (12.0-16.0); Imm Gran Abs Auto 0.03 X10*3/uL (0.00-0.03); Imm Gran Pct Auto 0.3 % (0.0-0.4); Lymphocytes Absolute Auto 1.3 X10*3/uL (1.2-4.9); Lymphocytes Percent Auto 12.3 % (20-40); Mean Corpuscular HGB Conc 34.2 g/dl (31.0-35.0); Mean Corpuscular Volume 87.9 fL (80.0-98.0); Mean Platelet Volume 11.7 fL (9.4-12.3); Monocytes Absolute Auto 0.7 X10*3/uL (0.1-1.2); Monocytes Percent Auto 6.7 % (2-11); Neutrophils Absolute Auto 8.6 x10*3/uL (2.0-8.3); Neutrophils Percent Auto 79.5 % (45-73); Platelet Count 259 X10*3/uL (160-400); Red Blood Count 4.06 X10*6/uL (4.20-5.50); Red Cell Distribution Width 12.3 % (11.0-16.0); White Blood Count 10.8 X10*3/uL (4.8-10.8)
[2023-01-10 17:42] LABS: Ferritin 363 ng/mL (10-122)
[2023-01-10 17:59] LABS: Folate 16.9 ng/mL (> or = 4.0); Vitamin B12 861 pg/mL (200-900)
[2023-01-12 20:38] LABS: TS Negative Control Passed; TS Panel A 3; TS Panel B 2; TS Positive Control Passed; TSpotTB Negative (Negative)
== END 2023-01-10 15:23 | disposition home or self-care (01) ==
LOC: HO.LAB 15:22
PROVIDERS: PCP Internal Medicine; Visit Provider Internal Medicine
DX: Z11.1 Encounter for screening for respiratory tuberculosis (principal); D50.8 Other iron deficiency anemias; G43.109 Migraine with aura, not intractable, without status migrainosus; Z98.84 Bariatric surgery status
CPT/HCPCS: 36415; 82607; 82728; 82746; 85025; 86481

== ENCOUNTER 2023-02-21 15:35 | Outpatient (REF) | payer OTHER, SELFPAY | END 2023-02-21 15:36 | disposition home or self-care (01) | LOC: HO.LAB 15:35 | PROVIDERS: PCP Internal Medicine; Visit Provider Internal Medicine | DX: Z01.84 Encounter for antibody response examination (principal) | CPT/HCPCS: 36415; 86704 ==

== ENCOUNTER 2023-06-07 14:51 | Outpatient (AMB) | payer OTHER, SELFPAY ==
--- NOTE | 2023-06-07 14:58 | MHC.OFFVIS ---
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 Dam Attendant Required: No Information Interpreted: non-clinical & clinical Clinical Implementation Specialist: Clinical Implementation Specialist Present (Kylah) Allergies No Known Allergies [No Known Allergies*] Allergy (Verified 06/07/23 15:02) Medication List - Last Reconciled 06/07/23 by Caro Moy CNM albuterol sulfate 90 mcg/actuation (Ventolin HFA) inhalation azithromycin 250 mg PO DIRECTED clindamycin phosphate 1% topical QAM fluticasone propionate 50 mcg/actuation sprays intranasal ipratropium bromide intranasal ketoconazole 2% topical levonorgestrel (Mirena) intrauterine sertraline 50 mg PO QAM tretinoin 0.025% appl topical DIRECTED Is last menstrual period known: No Post menopausal: No 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 She still does get her regular period. And her last period was about a month ago but she does not remember the date exactly. She also feels she has a little bit port drier than she used to be and a little bit less libido but it does not bother her and not enough to consider another method she has had the IUD in since she last gave 2019. Also she had bariatric surgery this past year at [facility] and she is very happy with the results she is trying to make healthier choices and she has lost 55 lb.. She had previously abnormal Pap smears but last year's Pap was done with no Co testing it was negative. [facility] Medical History (Updated 10/05/22 @ 08:50 by Asher Suarez) Depression IUD (intrauterine device) in place History of asthma Surgical History (Updated 06/07/23 @ 15:05 by SASKIA Correia) Hx of gastric bypass Hx of shoulder surgery Hx of cholecystectomy Family History Mother Heart attack Stroke Social History Alcohol intake: current Current occupational status: unemployed Current occupation: right handed Sexual orientation: Straight/Heterosexual Gender identity: Female Female Reproductive History Menstrual Age of Menarche: 11 Duration of menses: 8-10 days control method: progestin IUCD Total pregnancies: 5 Full term: 2 Number of Living Children: 2 Ab spontaneous: 3 Date of last pap smear: 03/10/22 (negative) History of abnormal pap smear: Yes (2018 NILSA 1, 2016 ASCUS) Physical Exam Vital Signs: Last Vital Signs BP 106/64 06/07/23 14:59 BMI result Body Mass Index 29.1 Const General: healthy appearing, comfortable, no acute distress, well developed and alert Nutritional Appearance: average body habitus Orientation/consciousness: patient oriented x3 Limitations: no limitations HEENT Head: Yes normocephalic Neck Neck: Yes normal visual inspection Chest Chest palpation & inspection: normal inspection of the chest Breast/axilla inspection: normal inspection of the breasts and normal inspection of the axillae Breast/axilla palpation: normal palpation of the breasts and normal palpation of the axillae Resp Effort & Inspection: normal respiratory effort GI Inspection: Yes normal to inspection, No Abdominal wall edema and No distended Palpation (GI): Soft to palpation and nontender Other: Normal external exam vagina moist cervix multiparous pink smooth with Mirena strings visible. Uterus is small retroverted mobile nontender only very slightly friable with Pap adnexa non tender and not enlarged very good tone with Kegel. General: Yes bladder normal to palpation External Female Exam: normal external appearance and normal appearance of the urethra Speculum Exam - Vagina: normal appearance of the vagina, normal palpation and normal vaginal discharge Speculum Exam - Cervix: normal appearance of the cervix, normal palpation and nontender Bimanual exam- vagina & uterus: normal bimanual exam, normal palpation, uterine size normal, bladder normal to palpation, consistency normal, normal palpation, uterine mobility normal, uterine shape normal, No Cervical tenderness present, non-tender and no cervical motion tenderness Bimanual Exam- Adnexa, other: normal adnexae, no masses, normal and No adnexal tenderness Neuro General: patient oriented x3 Results Reviewed Results Reviewed: previous paps Assessment & Plan Assessment & Plan (1) History of abnormal cervical Papanicolaou smear: Code(s): Z87.42 - Personal history of other diseases of the female genital tract (2) Screen for sexually transmitted diseases: Code(s): Z11.3 - Encounter for screening for infections with a predominantly sexual mode of transmission (3) Cervical cancer screening: Comment: hx ascus 2017, NILSA 1 2018, neg 2019, no hpv testing. 03/10/2022 Pap is negative, HPV code testing was omitted it has now been added on. Code(s): Z12.4 - Encounter for screening for malignant neoplasm of cervix (4) Well woman exam with routine gynecological exam: Code(s): Z01.419 - Encounter for gynecological examination (general) (routine) without abnormal findings (5) Presence of 52 mg levonorgestrel-releasing intrauterine device (IUD): Code(s): Z97.5 - Presence of (intrauterine) contraceptive device Plan -----Discussed in this visit the following: healthy balanced diet, regular and consistent exercise, getting recommended health screens, doing the best she can for her particular health concerns, kegel exercises, pap smear screening and followup recommendations, mammography screening and SBE, normal changes in cycles in her life stage--- . Pap smear and Co testing done patient does have a history of abnormal Paps in the past last year Pap was done but the code testing was omitted and I could not find it in the system. Testing for STIs done with the exam but she declined blood work for stis.. Reviewed the normal side effects of the Mirena IU S and that some women do report increased dryness and decreased libido so it would not be on heard ofto experience that. It still not enough for her to make a different choice. Discussed normal changes that occur . Also reviewed length of time that Mirena can be used these days, Coding Level of Care Code Est Pt Prev Care [id number]) Diagnoses History of abnormal cervical Papanicolaou smear Z87.42 Screen for sexually transmitted diseases Z11.3 Cervical cancer screening Z12.4 Well woman exam with routine gynecological exam Z01.419 Presence of 52 mg levonorgestrel-releasing intrauterine device (IUD) Z97.5
[2023-06-07 14:59] VITALS: BP 106/64; BMI 29.1
== END 2023-06-07 16:07 | disposition home or self-care (01) ==
LOC: HO.HWSM 14:51
PROVIDERS: PCP Internal Medicine; Visit Provider Advanced Practice Midwife
DX: Z01.419 Encounter for gynecological examination (general) (routine) without abnormal findings (principal); Z87.42 Personal history of other diseases of the female genital tract; Z11.3 Encounter for screening for infections with a predominantly sexual mode of transmission; Z12.4 Encounter for screening for malignant neoplasm of cervix; Z97.5 Presence of (intrauterine) contraceptive device
CPT/HCPCS: 99395

== ENCOUNTER 2023-06-07 14:51 | Outpatient (REF) | payer OTHER, SELFPAY ==
[2023-06-08 03:35] LABS: CT PCR NOT DETECTED (Not Detect.); NG PCR NOT DETECTED (Not Detect.)
[2023-06-08 13:44] LABS: BV Int Neg Control Negative (Negative); BV Int Pos Control Positive (Positive)
[2023-06-10 06:43] LABS: HPV mRNA E6/E7 rflx Not Detected (Not Detected)
== END 2023-06-07 14:52 | disposition home or self-care (01) ==
LOC: HO.LNP 14:51
PROVIDERS: PCP Internal Medicine; Visit Provider Advanced Practice Midwife
DX: Z01.419 Encounter for gynecological examination (general) (routine) without abnormal findings (principal); R25.2 Cramp and spasm; Z87.42 Personal history of other diseases of the female genital tract; Z97.5 Presence of (intrauterine) contraceptive device; Z11.3 Encounter for screening for infections with a predominantly sexual mode of transmission; Z79.899 Other long term (current) drug therapy
CPT/HCPCS: 0353U; 87480; 87510; 87624; 87660; 88142; 99395

== ENCOUNTER 2023-08-08 15:59 | Outpatient (REF) | payer OTHER, SELFPAY ==
[2023-08-08 16:10] LABS: MANUAL DIFF FLAG NO
[2023-08-08 17:39] LABS: Basophils Absolute Auto 0.1 X10*3/uL (0.0-0.2); Basophils Percent Auto 0.9 % (0-2); Eosinophils Absolute Auto 0.1 X10*3/uL (0.0-0.4); Eosinophils Percent Auto 0.9 % (0-4); Imm Gran Abs Auto 0.03 X10*3/uL (0.00-0.03); Imm Gran Pct Auto 0.3 % (0.0-0.4); Lymphocytes Absolute Auto 2.4 X10*3/uL (1.2-4.9); Lymphocytes Percent Auto 25.9 % (20-40); Mean Corpuscular HGB Conc 33.3 g/dl (31.0-35.0); Mean Corpuscular Hemoglobin 30.2 pg (27.0-33.0); Mean Corpuscular Volume 90.5 fL (80.0-98.0); Mean Platelet Volume 11.8 fL (9.4-12.3); Monocytes Absolute Auto 0.7 X10*3/uL (0.1-1.2); Monocytes Percent Auto 7.5 % (2-11); Neutrophils Absolute Auto 5.9 x10*3/uL (2.0-8.3); Neutrophils Percent Auto 64.5 % (45-73); Platelet Count 226 X10*3/uL (160-400); Red Blood Count 4.64 X10*6/uL (4.20-5.50); Red Cell Distribution Width 12.4 % (11.0-16.0); White Blood Count 9.1 X10*3/uL (4.8-10.8)
[2023-08-08 18:11] LABS: Ferritin 117 ng/mL (10-122); Vitamin D 25-OH Total 42.1 ng/mL (>30)
[2023-08-08 18:20] LABS: Folate 13.5 ng/mL (> or = 4.0); Vitamin B12 635 pg/mL (200-900)
== END 2023-08-08 16:00 | disposition home or self-care (01) ==
LOC: HO.LAB 15:59
PROVIDERS: PCP Internal Medicine; Visit Provider Internal Medicine
DX: F32.5 Major depressive disorder, single episode, in full remission (principal); R07.81 Pleurodynia; Z98.84 Bariatric surgery status
CPT/HCPCS: 36415; 82306; 82607; 82728; 82746; 85025

== ENCOUNTER 2024-11-13 14:29 | Outpatient (REF) | payer OTHER, SELFPAY ==
--- OUTSIDE RECORDS SUMMARY | 2024-11-13 15:01 | XMS_ITS | Encounter Summary ---
Author Organization [facility] Address [address] [place] [id number] Care Team Providers Care Primer And Powder Canning Leader Name Role Phone Irena Zeng MD Primary Care Provider Jaki vailable Encounter Details Date Type Department Care Team Description 07/10/2018 Release of Information Medical Records [address] [place] [id number] Abstract, Provider Social History Tobacco Use Types Packs/Day Years Used Date Smoking Tobacco: Never Cigarettes Smokeless Tobacco: Never Alcohol Use Standard Drinks/Week Comments Yes 0 (1 standard drink = 0.6 oz pur e alcohol) occ Alcohol Habits Answer Date Recorded How often do you have a drink containing alcohol ? Never 01/25/2020 How many drinks containing a lcohol do you have on a typical day when you are drinking? Not asked How often do you have six or more drinks on one occasion? Not asked Sex Assigned at Date Recorded Not on file Job Start Date Occupation Industry Not on file Not on file Not on file documented as of this encounter Plan of Treatment Not on file documented as of this encounter Visit Diagnoses Not on filedocumented in this encounter Care Teams Primer And Powder Canning Leader Relationship Specialty Start Date End Date Irena Zeng MD PCP - General Internal Medicine 06/26/18 documented as of this encounter
--- OUTSIDE RECORDS SUMMARY | 2024-11-13 15:01 | XMS_ITS | Clinical Summary ---
Author Organization [employer] Address [address] [facility] [address] [place] [address] Care Team Providers Care Health Equipment Servicer Name Role Phone Provider, Not In System Primary Care Provider Un available Allergies No known active allergies Medications Ventolin HFA 108 (90 Base) MCG/ACT inhaler INHALE 2 PUFFS BY MOUTH 4 TIMES A DAY NEEDED FOR ASTHMA 06/04/2023 Active Immunizations Immunization Administration Dates Next Due DTaP 11/12/1996, 5,08/13/1994,04/14 HPV, Quadrivalent 04/12/2012, 2,12/03/2007,04/18,12/01/2006 Hep B, adult 03/15/1995,08/13/1994,04/14/1994 HiB, unspecified 03/15/1995,08/13/1994, 4 IPV 01/13/1997, 5,08/13/1994,04/14 Influenza Injectable Quadriv alant Preservative Free IIV4 MDCK 01/26/2023 Influenza injectable quadriv alent IIV4 with preservative 03/23/2017 Influenza injectable quadriv alent preservative free 02/23/2022,08/02/2021 Influenza, Unspecified 04/20/2010,06/10/2009,09/2006 Influenza, seasonal, injecta ble, preservative free 01/25/2024 MMR 10/16/2020,01/13/1997,04/14/1994 Meningococcal MCV4O 12/01/2006 Moderna Covid-19 Vaccine 12+ 08/04/2021 Novel [id number], all formulations 06/10/2009 Pfizer Covid-19 Vaccine 12+ 03/11/2024, Td (adult), unspecified 11/11/2009,02/07/2001 Tdap 11/26/2019, 9,02/08/2012,12/01 Varicella 12/03/2007,12/03/2002 Social History Tobacco Use Types Packs/Day Years Used Date Smoking Tobacco: Never Assessed Comments Unknown Sex and Gender Information Value Date Recorded Sex Assigned at Female 03/15/2022 2:34 PM EDT Legal Sex Female 2:34 PM EDT Gender Identity Female 09/13/2023 8:56 AM EDT Sexual Orientation Don't know 09/13/2023 8: 56 AM EDT Last Filed Vital Signs Vital Sign Reading Time Taken Comments Blood Pressure 102/62 10/11/2023 2:50 PM EDT Pulse 65 10/11/2023 2:50 PM EDT Temperature - - Respiratory Rate - - Oxygen Saturation - - Inhaled Oxygen Concentration - - Weight - - Height - - Body Mass Index - - Plan of Treatment Health Maintenance Due Date Last Done Comments Dental Oral Exam 1992 Dental X-Ray: Bitewings 1992 Dental X-Ray: Full Mouth 1992 Depression Screening 1992 HIV Screening 1992 Lipid Panel 1992 SDOH Screening 1992 Disability Screening 1992 Alcohol/Substance Use Screening 2004 Tobacco Screening 2004 Family Planning (PISQ) 12/08/2007 Hepatitis C Screening 2010 Pneumococcal Vaccine: Pediatrics (0 to 5 Years) and At-Risk Patients (6 to 49) Years (1 of 2 - PCV) 12/08/2011 Pap Smear 2013 Cervical Cancer Screening 2022 HPV/Cotest 2022 Dental Prophylaxis 04/13/2024 10/11/2023 DTaP/Tdap/Td Vaccines (11 - Td or Tdap) 11/25/2029 11/26/2019, 12/04/2018, 02/08/2012, Additional history exists Zoster Vaccines (1 of 2) 2042 RSV Patients and Patients Aged 60 years or older (1 - 1-dose 75+ series) 12/08/2067 HIB Vaccines Completed 03/15/1995, 0405/1994, 04/14/1994 Hepatitis B Vaccines Completed 03/15/1995, 08/13/1994, 04/14/1994 IPV Vaccines Completed 01/13/1997, 060 05/1994, 08/13/1994, Additional history exists Meningococcal Vaccine Aged Out 12/01/2006 No gus bety eligible based on patient's age to complete this topic HPV Vaccines Completed 04/12/2012, 01/14, 12/03/2007, Additional history exists Influenza Vaccine Completed 01/25/2024, , 02/23/2022, Additional history exists COVID-19 Vaccine Completed 03/11/2024, 05/2022, 08/04/2021, Additional history exists Hepatitis A Vaccines Aged Out No long er eligible based on patient's age to complete this topic Meningococcal B Vaccine Aged Out No l onger eligible based on patient's age to complete this topic RSV under 20 months Aged Out No longe r eligible based on patient's age to complete this topic Rotavirus Vaccines Aged Out No longer eligible based on patient's age to complete this topic Procedures Procedure Name Priority Date/Time Associated Diagnosis Comments Full PROPHYLAXIS - ADULT Routine 10/11/2023 3:00 PM EDT from Last 3 Months or Most Recently Relevant to Health Maintenance Insurance [facility] STAND ADULT Care Teams Health Equipment Servicer Relationship Specialty Start Date End Date Provider, Not In System PCP - General 08/14/23
--- OUTSIDE RECORDS SUMMARY | 2024-11-13 15:01 | XMS_ITS | Clinical Summary ---
Author Organization [facility] Address [address] [place] [address] Phone Care Team Providers Care Mixer Driver Name Role Phone Irena Zeng MD Primary Care Provider [phone] Allergies No known active allergies Medications UNABLE TO FIND Wheat Dextrin (Benefiber) Powder, Take 4 g by mouth daily. 07/11/2023 Active spironolactone (ALDACTONE) 25 mg tablet Take 1 tablet (25 mg total) by mouth 1 (one) time each day. Active sertraline (ZOLOFT) 50 mg tablet Take 1 tablet (50 mg total) by mouth 1 (one) time each day in the morning. 04/21/2022 Active clindamycin (CLEOCIN T) 1 % external solution 05/30/2022 Active ketoconazole (NIZORAL) 2 % shampoo 05/30/2022 Active tretinoin (RETIN-A) 0.025 % cream 05/30/2022 Active triamcinolone acetonide 0.025 % lotion 05/30/2022 Active Active Problems Problem Noted Date Diagnosed Date Class 1 obesity with body ma ss index (BMI) of 33.0 to 33.9 in adult 04/01/2024 Overweight (BMI 25.0-29.9) 12/06/2023 Mild intermittent asthma 08/01/2011 Eczema 06/21/2011 Encounters Date Type Department Care Team Description 09/10/2024 3:30 PM EDT Consult Orthopedic Surgery [facility] [address] [facility] [address] [place] [address] Roger Sands, DPM Ingrown toenail from Last 3 Months Immunizations Name Administration Dates Next Due HPV, Quadrivalent 04/12/2012,02/08/2012 Tdap Tetanus diptheria acell ular pertussis (Boostrix; Adacel) 7yo and older 02/08/2012 Surgical History Surgery Date Site/Laterality Comments WISDOM TOOTH EXTRACTION 10/2010 PROCEDURE: HISTORICAL WISDOM TEETH EXTRACTION; COMMENT: all 4 WISDOM TOOTH EXTRACTION PROCEDURE: HISTORICAL WISDOM TEETH EXTRACTION CHOLECYSTECTOMY PROCEDURE: ME CHOLECYSTECTOMY; COMMENT: 2013 OTHER SURGICAL HISTORY 2017 PROCEDURE: ---- OTHER ----; COMMENT: left shoulder Medical History Medical History Date Comments Eczema DX:Eczema Chronic urticaria 2011 DX:Chronic urt icaria; COMMENT: also as a child Patient denies medical problems DX:Patient denies medical problems Family History Medical History Relation Name Comments No Known Problems Father Diabetes Maternal Grandmother Heart attack Mother smoker Other: blood clot Mother ?assoc wit h OCP? Relation Name Status Comments Brother 1 Alive Jose De Jesus Brother 2 Alive Romeo-eczema Brother 3 Alive Dc Father Alive unknown (jeff sheehan was a foster child) Maternal Grandfather (Age ?) unk nown Maternal Grandmother Alive DM, HTN Mother Alive asthma, [place] age 34 during surgery for a clot , smoker Paternal Grandfather Alive unknown Paternal Grandmother Alive unknown Sister Alive Yamilete-eczema Social History Tobacco Use Types Packs/Day Years Used Date Smoking Tobacco: Never Smokeless Tobacco: Never Alcohol Use Standard Drinks/Week Comments Yes 0 (1 standard drink = 0.6 oz pur e alcohol) Comments Unknown Sex and Gender Information Value Date Recorded Sex Assigned at Not on file Legal Sex Female 4:33 AM EST Gender Identity Not on file Sexual Orientation Not on file Obstetrics History Last Filed Vital Signs Vital Sign Reading Time Taken Comments Blood Pressure 104/67 06/26/2024 3:52 PM EST Pulse 65 06/26/2024 3:52 PM EST Temperature - - Respiratory Rate - - Oxygen Saturation - - Inhaled Oxygen Concentration - - Weight 61 kg (134 lb 6.4 oz) 06/26/2024 3:52 PM EST Height 154.9 cm (5' 1 ) 06/26/2024 3:52 PM EST Body Mass Index 25.39 06/26/2024 3:52 PM EST Plan of Treatment Health Maintenance Due Date Last Done Comments Pneumococcal Vaccine: Pediatrics (0 to 5 Years) and At-Risk Patients (6 to 64 Years) (1 of 2 - PCV) 12/08/2011 Cervical Cancer Screening: Pap Smear 02/10/2019 02/11/2016 Depression Screening 06/13/2023 Social Influencers of Health Screening 06/13/2023 Cholesterol Screening (Lipid Panel) 06/13/2027 06/13/2022 DTaP,Tdap,and Td Vaccines (11 - Td or Tdap) 11/25/2029 11/26/2019, 12/04/2018, 02/08/2012, Additional history exists HIB Vaccines Completed 03/15/1995, 05/1994, 04/14/1994 Hepatitis B Vaccines Completed 03/15/1995, 08/13/1994, 04/14/1994 IPV Vaccines Completed 01/13/1997, 05/1994, 08/13/1994, Additional history exists Meningococcal ACWY Vaccine Aged Out 12/01/2006 N o longer eligible based on patient's age to complete this topic Varicella Vaccines Completed 12/03/2007, 12/03/2002 HPV Vaccines Completed 04/12/2012, 01/14, 12/03/2007, Additional history exists HIV Screening Completed 12/26/2012 Hepatitis C Screening Completed 12/26/2012 MMR Vaccines Completed 10/16/2020, 05/1996, 04/14/1994 Influenza Vaccine Completed 01/25/2024, , 02/23/2022, Additional history exists COVID-19 Vaccine Completed 03/11/2024, 05/2022, 08/04/2021, Additional history exists Hepatitis A Vaccines Aged Out No long er eligible based on patient's age to complete this topic Meningococcal B Vaccine Aged Out No l onger eligible based on patient's age to complete this topic RSV Immunization Patients Under 20 months Aged Out No longer eligible based on patient's age to complete this topic Procedures Procedure Name Priority Date/Time Associated Diagnosis Comments LIPID PANEL Routine 06/13/2022 PAP SMEAR Routine 02/11/2016 HEPATITIS C SCREENING Routine 12/26/2012 HIV SCREENING Routine 12/26/2012 from Last 3 Months or Most Recently Relevant to Health Maintenance Results * Lipid panel (06/13/2022) Pathologist [facility] LDL/HDL Ratio 4 0 - 4 Triglycerides 136 0 - 150 mg/dL Cholesterol 151 0 - 200 mg/dL HDL 43 >=40 mg/dL LDL Cholesterol 81 0 - 100 mg/dL Blood Venous blood specimen / Unknown [facility] Provider LAB BLOOD ORDERABLES Tia l Result * Pap Smear (02/11/2016) Pathologist [facility] Pap smear abstracted, no interpretation [facility] Provider HEALTH MAINTENANCE Final Result * HIV Screening (12/26/2012) Pathologist [facility] HIV Screening abstracted [facility] Provider HEALTH MAINTENANCE Final Result * Hepatitis C Screening (12/26/2012) Pathologist [facility] Hepatitis C Screening abstracted [facility] Provider HEALTH MAINTENANCE Final Result from Last 3 Months or Most Recently Relevant to Health Maintenance Insurance [facility] PUBLIC PLANS [place] [id number] Care Teams Mixer Driver Relationship Specialty Start Date End Date Irena Zeng MD [address] [place] PCP - General Internal Medicine 06/26/18
[2024-11-13 16:12] LABS: Alanine Aminotransferase 34 U/L (0-31); Albumin Level 4.4 g/dL (3.5-5.0); Alkaline Phosphatase 80 U/L (39-117); Anion Gap 12 (12-20); Aspartate Amino Transferase 20 U/L (5-31); Blood Urea Nitrogen 10 mg/dL (9-16); Calcium 9.1 mg/dL (8.4-10.2); Carbon Dioxide 27 mmol/L (22-29); Chloride 106 mmol/L (96-108); Estimated Glomerular Filt Rate > 60; Potassium 3.9 mmol/L (3.3-5.1); Sodium 141 mmol/L (135-145); Total Protein 6.7 g/dL (6.5-8.0)
== END 2024-11-13 14:30 | disposition home or self-care (01) ==
LOC: HO.LAB 14:29
PROVIDERS: PCP Internal Medicine; Visit Provider Internal Medicine
DX: R10.9 Unspecified abdominal pain (principal); R14.0 Abdominal distension (gaseous); R19.7 Diarrhea, unspecified
CPT/HCPCS: 36415; 80053

== ENCOUNTER 2024-12-26 14:03 | Outpatient (AMB) | payer OTHER, SELFPAY ==
--- NOTE | 2024-12-26 14:08 | MHC.OFFVIS ---
Vital Signs 12/26/24 14:13 Height 5 ft 1 in Weight 135 lb BMI 25.5 BP 120/75 Blood Pressure Location Rt brachial Position Sitting Pulse 65 Intake Visit Reasons: Rectal pain r/o anal fissure Intake Note: Patient referred by pcp Dr. Zeng for evaluation and treatment of rectal pain ? anal fissure. Hx of gastric sleeve surgery. Patient c/o: pain when walking, swollen around anus. Hx of external hemorrhoids. Noticed blood after BM. Semi Driver Required: No Accompanied by: daughter Cira Allergies No Known Allergies (No Known Allergies*) Allergy (Verified 12/26/24 14:10) HPI HPI Rectal pain r/o anal fissure: Details: 34 year female referred for anal pain. She says that she has known hemorrhoids and says that she feels that these prolapse frequently. She describes having to push this back into the anal canal bowel movements frequently. She describes episodes of swelling, and pain and significant discomfort. She says that this has been going on for a while now. She is considering having hemorrhoidectomy. Because of these problems. She also says that she has had chronic constipation in the past. [facility] Medical History Mixed internal and external hemorrhoid Depression IUD (intrauterine device) in place History of asthma Surgical History Hx of gastric bypass Hx of shoulder surgery Hx of cholecystectomy Family History Mother Heart attack Stroke Social History Alcohol intake: current Current occupational status: unemployed Current occupation: right handed Sexual orientation: Straight/Heterosexual Gender identity: Female Female Reproductive History Menstrual Age of Menarche: 11 Review of Systems Const Denies chills and Denies fever(s) Card Denies chest pain, Denies dyspnea and Denies dyspnea on exertion Resp Denies cough, Denies dyspnea and Denies dyspnea on exertion GI Reports hematochezia, Denies change in bowel habits and Reports constipation Denies hematuria Musc Denies back pain and Denies limited range of motion Neuro Denies focal weakness and Denies convulsions Psych Denies depression and Denies mood swings Physical Exam Vital Signs: Last Vital Signs Pulse 65 12/26/24 14:13 BP 120/75 12/26/24 14:13 BMI result Body Mass Index 25.5 Const General: comfortable and no acute distress Orientation/consciousness: patient oriented x3 Neck Neck: Yes no lymphadenopathy Resp Auscultation: clear to auscultation bilaterally Cardio Rhythm: regular rhythm GI Other: Rectal exam so medium-sized external hemorrhoids on both the left and right side with no fissure on retraction of the anal canal Palpation (GI): Soft to palpation, nontender and no guarding Neuro General: patient oriented x3 Office Procedures Anoscopy She was in kneeling garret-knife position. The anoscope was gently inserted. A full examination of the anal canal was done. She did have very prominent external hemorrhoids and some internal hemorrhoidal columns. These were seen on both sides. There was no fissure seen. There was no ulceration. There were no lesions. There was no induration on digital exam. There was no bleeding. She had good sphincter tone [id number] Assessment & Plan Assessment & Plan (1) Mixed internal and external hemorrhoid: Code(s): K64.8 - Other hemorrhoids; K64.4 - Residual hemorrhoidal skin tags Category: Medical Plan: She does have moderate-sized external and internal hemorrhoids. She feels that this has been bothering her for so many years now. She describes frequent swelling, and burning pain especially with bowel movements. Furthermore, she says that she often has to push this back in after bowel movements because of the swelling and prolapse She wants to proceed with hemorrhoidectomy. I explained the technique of exam under anesthesia and hemorrhoidectomy. If I find a fissure then I will also do a sphincterotomy. She understands the risks including but not limited to bleeding, infections and postop pain. I reviewed with him what to expect postoperatively. She wants to proceed. Coding Level of Care Code New Pt Level 3 (47495) Diagnoses Mixed internal and external hemorrhoid K64.8; K64.4 CPT Codes Details - CPT: 16376-[id number] ([id number])
[2024-12-26 14:13] VITALS: BP 120/75; PULSE 65; BMI 25.5
--- OUTSIDE RECORDS SUMMARY | 2024-12-26 14:52 | XMS_ITS | Clinical Summary ---
Author Organization [facility] [employer] Address [address] [facility] [address] [place] [address] Care Team Providers Care Production Operator Name Role Phone Provider, Not In System [...] 12/01/2006 Moderna Covid-19 Vaccine 12+ 08/04/2021 Novel [id number], all formulations 06/10/2009 Pfizer Covid-19 Vaccine 12+ [...] 2022 HPV/Cotest 2022 Dental Prophylaxis 04/13/2024 10/11/2023 Influenza Vaccine (#1) 2025 , 01/26/2023, 02/23/2022, Additional history exists DTaP/Tdap/Td Vaccines (11 - Td or Tdap) 11/25/2029 11/26/2019, 12/04/2018, 02/08/2012, Additional history exists Zoster Vaccines (1 of 2) 2042 RSV Patients and Patients Aged 60 years or older (1 - 1-dose 75+ series) 12/08/2067 HIB Vaccines Completed 03/15/1995, 05/1994, 04/14/1994 Hepatitis B Vaccines Completed 03/15/1995, 08/13/1994, 04/14/1994 IPV Vaccines Completed 01/13/1997, 05/1994, 08/13/1994, Additional history exists Meningococcal Vaccine Aged Out 12/01/2006 No gus bety eligible based on patient's age to complete this topic HPV Vaccines Completed 04/12/2012, 01/14, 12/03/2007, Additional history exists COVID-19 Vaccine Completed 03/11/2024, [...] Most Recently Relevant to Health Maintenance Insurance [id number] MEDICAID STAND ADULT Care Teams Production Operator Relationship Specialty Start Date End Date Provider, Not In System PCP - General 08/14/23
--- OUTSIDE RECORDS SUMMARY | 2024-12-26 14:52 | XMS_ITS | Clinical Summary ---
Author Organization [facility] Address [address] [facility] [address] [place] [id number] Phone Care Team Providers Care Applique Sewer Name Role Phone Irena Zeng MD Primary Care Provider Allergies No known active allergies Medications sertraline (ZOLOFT) 50 MG tablet Take 50 mg by mouth every morning. 04/21/2022 Active Active Problems Problem Noted Date Diagnosed Date Pilar cyst of scalp 05/23/2022 Immunizations Immunization Administration Dates Next Due COVID-19 (Pre-03/06) Moderna Vaccine, mRNA, PF 08/04/2021 COVID-19 (Pre-03/06) Pfizer Vaccine, Bivalent 12+ 09/12/2022 COVID-19 (Pre-03/06) Pfizer Vaccine, mRNA, PF 02/01/2021,01/11/2021 Hepatitis B Adult 03/15/1995,08/13/1994,04/14/19 94 Influenza, Unspecified Formulation 01/26/2023 MMR 10/16/2020,01/13/1997 Tdap 11/26/2019 Varicella 12/03/2007,12/03/2002 Family History Medical History Relation Comments Stroke Mother Relation Status Comments Mother Alive Social History Tobacco Use Types Packs/Day Years Used Date Smoking Tobacco: Never Smokeless Tobacco: Never Tobacco Cessation:Counseling Given: Not Answered Alcohol Use Standard Drinks/Week Comments Yes 0 (1 standard drink = 0.6 oz pur e alcohol) Education Answer Date Recorded Are you interested in more education? Not on khoa e 09/17/2022 Are you concerned about learning? Not on file 09/17/2022 No 09/17/2022 No 09/17/2022 Digital Access Answer Date Recorded No 10/04/2022 No 10/04/2022 No 10/04/2022 Reliable internet access at home? Not on file 10/04/2022 Device with a working camera? Not on file Comments Unknown Sex and Gender Information Value Date Recorded Sex Assigned at Not on file Legal Sex Female 5:33 PM EST Gender Identity Not on file Sexual Orientation Not on file Last Filed Vital Signs Vital Sign Reading Time Taken Comments Blood Pressure 118/69 05/23/2022 2:10 PM EST Pulse 64 05/23/2022 2:10 PM EST Temperature - - Respiratory Rate - - Oxygen Saturation - - Inhaled Oxygen Concentration - - Weight 91.3 kg (201 lb 3.2 oz) 05/23/2022 2:10 P M EST Height 156.2 cm (5' 1.5 ) 05/23/2022 2:10 PM EST Body Mass Index 37.4 05/23/2022 2:10 PM EST Plan of Treatment Health Maintenance Due Date Last Done Comments DEPRESSION SCREENING 2004 HEPATITIS C SCREENING 2010 HIV ONE-TIME SCREENING (18-65 YEARS) 2010 PAP SMEAR 2013 COVID-19 VACCINE ( season) 2024 09/12/2022, 08/04/2021, 02/01/2021, Additional history exists Adult Td,Tdap Booster 11/25/2029 11/26/2019, 012 SMOKING STATUS SCREENING (Once After 26 Yrs) Completed 05/23/2022 HEPATITIS A VACCINES Aged Out No long er eligible based on patient's age to complete this topic HIB VACCINES Aged Out No longer eligi ble based on patient's age to complete this topic MENINGOCOCCAL VACCINES (ACWY) Aged Out No longer eligible based on patient's age to complete this topic MENINGOCOCCAL VACCINES (B) Aged Out N o longer eligible based on patient's age to complete this topic PNEUMOCOCCAL VACCINES (0-49 years) Aged Out No longer eligible based on patient's age to complete this topic Medical Devices Not on file Insurance Care Teams Applique Sewer Relationship Specialty Start Date End Date Irena Zeng MD [address] [place] [address] [place] [address] PCP - General 05/12/22 Additional Source Comments The information contained in this document represents components of the legal health record. It is not the complete legal health record.[facility]
--- OUTSIDE RECORDS SUMMARY | 2024-12-26 14:52 | XMS_ITS | Clinical Summary ---
Author Organization [address] [place] [address] Address [address] [place] [address] Phone Care Team Providers Care Auto Electrician Name Role Phone Irena Zeng MD Primary Care Provider [phone] Allergies No known active allergies Medications UNABLE [...] 12/06/2023 Mild intermittent asthma 08/01/2011 Eczema 06/21/2011 Immunizations Name Administration Dates Next Due HPV, Quadrivalent 04/12/2012,02/08/2012 Tdap Tetanus diptheria acell ular pertussis (Boostrix; Adacel) 7yo and older 02/08/2012 Surgical History Surgery Date Site/Laterality Comments WISDOM TOOTH EXTRACTION 10/2010 PROCEDURE: HISTORICAL WISDOM TEETH EXTRACTION; COMMENT: all 4 WISDOM TOOTH EXTRACTION PROCEDURE: HISTORICAL WISDOM TEETH EXTRACTION CHOLECYSTECTOMY PROCEDURE: [place] CHOLECYSTECTOMY; COMMENT: 2013 OTHER SURGICAL HISTORY 2017 [...] Grandmother Alive DM, HTN Mother Alive asthma, [place] age 34 during surgery for a clot [...] 5 Years) and At-Risk Patients (6 to 49 Years) (1 of 2 - PCV) 12/08/2011 Cervical Cancer Screening: Pap Smear 02/10/2019 02/11/2016 Social Influencers of Health Screening 06/13/2023 Depression Screening 05/15/2024 Influenza Vaccine (#1) 2025 , 01/26/2023, 02/23/2022, Additional history exists Cholesterol Screening (Lipid Panel) 06/13/2027 06/13/2022 DTaP,Tdap,and [...] 12/26/2012 MMR Vaccines Completed 10/16/2020, 05/1996, 04/14/1994 COVID-19 Vaccine Completed 03/11/2024, 05/2022, 08/04/2021, Additional [...] Health Maintenance Results * Lipid panel (06/13/2022) LDL/HDL Ratio 4 0 - 4 Triglycerides 136 0 - 150 mg/dL Cholesterol 151 0 - 200 mg/dL HDL 43 >=40 mg/dL LDL Cholesterol 81 0 - 100 mg/dL Blood Venous blood specimen / Unknown [facility] Provider LAB BLOOD ORDERABLES Tia l Result * Pap Smear (02/11/2016) Pap smear abstracted, no interpretation [facility] Provider HEALTH MAINTENANCE Final Result * HIV Screening (12/26/2012) HIV Screening abstracted [facility] Provider HEALTH MAINTENANCE Final Result * Hepatitis C Screening (12/26/2012) Pathologist [facility] Hepatitis C Screening abstracted [facility] Provider HEALTH MAINTENANCE Final Result from Last 3 Months or Most Recently Relevant to Health Maintenance Insurance [facility] PUBLIC [employer] Care Teams Auto Electrician Relationship Specialty Start Date End Date Irena Zeng MD [address] PCP - General Internal Medicine 06/26/18
== END 2024-12-26 14:33 | disposition home or self-care (01) ==
LOC: HO.HGS 14:03
PROVIDERS: PCP Internal Medicine; Visit Provider Surgery
DX: K64.8 Other hemorrhoids (principal)
CPT/HCPCS: 46600; 99203

== ENCOUNTER → 2024-12-26 14:03 | Outpatient (BNVA) | payer OTHER, SELFPAY | PROVIDERS: PCP Internal Medicine; Visit Provider Surgery | DX: K64.4 Residual hemorrhoidal skin tags (principal) | CPT/HCPCS: 46600; 99202 ==

== ENCOUNTER 2025-01-24 05:49 | Day surgery (SDC) | payer OTHER, SELFPAY ==
--- OUTSIDE RECORDS SUMMARY | 2025-01-08 21:48 | XMS_ITS | Encounter Summary ---
Author Organization [facility] Address [address] [place] [address] Care Team Providers Care Epitaxial Reactor Operator Name Role Phone Irena Zeng MD Primary Care Provider [phone] Reason for Visit * Reason Comments Animal Bite Pt has a red streek up her arm Encounter Details Date Type Department Care Team (Late st Contact Info) Description 01/08/2025 9:48 PM EDT - 01/09/2025 4:55 AM EDT Emergency [facility] Emergency [address] [place] [address] Discharge Disposition: Left Against Medical Advice Social History Tobacco Use Types Packs/Day Years Used Date Smoking Tobacco: Never Smokeless Tobacco: Never Alcohol Use Standard Drinks/Week Comments Yes 0 (1 standard drink = 0.6 oz pur e alcohol) Comments Unknown Sex and Gender Information Value Date Recorded Sex Assigned at Not on file Legal Sex Female 4:33 AM EST Gender Identity Not on file Sexual Orientation Not on file documented as of this encounter Last Filed Vital Signs Vital Sign Reading Time Taken Comments Blood Pressure 130/86 01/08/2025 10:09 PM EDT Pulse 73 01/08/2025 10:09 PM EDT Temperature - - Respiratory Rate 18 01/08/2025 10:09 PM EDT Oxygen Saturation 100% 01/08/2025 10:09 PM EDT Inhaled Oxygen Concentration - - Weight - - Height - - Body Mass Index - - documented in this encounter Functional Status * Are you deaf or do you have serious difficulty hearing? Answer Date of Assessment Author No 01/08/2025 9:45 AM EDT Pierre RN * Are you blind or do you have serious difficulty seeing, even when wearing glasses? Answer Date of Assessment Author No 01/08/2025 9:45 AM EDT Pierre RN * Do you have serious difficulty walking or climbing stairs? Answer Date of Assessment Author No 01/08/2025 9:45 AM EDT Pierre RN * Do you have serious difficulty dressing or bathing? Answer Date of Assessment Author No 01/08/2025 9:45 AM EDT Pierre RN * Because of a physical, mental, or emotional condition, do you have serious difficulty doing errandsalone such as visiting the doctor? Answer Date of Assessment Author No 01/08/2025 9:45 AM EDT Pierre RN documented as of this encounter Mental Status * Because of a physical, mental, or emotional condition, do you have serious difficulty concentrating, remembering, or making decisions? (5 years old or older) Answer Entry Date Author No 01/08/2025 9:45 AM EDT Pierre RN documented in this encounter Medications at Time of Discharge clindamycin (CLEOCIN T) 1 % external solution 05/30/2022 ketoconazole (NIZORAL) 2 % shampoo 05/30/2022 sertraline (ZOLOFT) 50 mg tablet Take 1 tablet (50 mg total) by mouth 1 (one) time each day in the morning. 04/21/2022 spironolactone (ALDACTONE) 25 mg tablet Take 1 tablet (25 mg total) by mouth 1 (one) time each day. tretinoin (RETIN-A) 0.025 % cream 05/30/2022 triamcinolone acetonide 0.025 % lotion 05/30/2022 UNABLE TO FIND Wheat Dextrin (Benefiber) Powder, Take 4 g by mouth daily. 07/11/2023 documented as of this encounter Discharge Disposition Disposition Code Departure Means Destination Left Against Medical Advice documented in this encounter Progress Notes * Martine Poon RN - 01/09/2025 4:52 AM EDT Pt eloped from ER WR Martine Poon RN 01/09/25 0453 * Patricia Rivera RN - 01/08/2025 10:07 PM EDT Cat bite this am and was put srinivas antibiotic and came to er this am and received rabies shot , pt is back with redness up her left arm * Bettina Segura Geoff, FINAL OPERATIONS TECHNICIAN - 01/08/2025 9:48 PM EDT Images from the original note were not included. HPI Chief Complaint Patient presents with Animal Bite Pt has a red streek up her arm Pt here with cat bite recheck. Was a feral cat and she started on Rabies vaccine and given PO Augmentin. She has taken 2 doses so far. She noted a streak going up her arm when she was in the shower. Wound is more painful than earlier today. No data recorded Patient History Past Medical History: Diagnosis Date Chronic urticaria 2011 DX:Chronic urticaria; COMMENT: also as a child Eczema DX:Eczema Patient denies medical problems DX:Patient denies medical problems Past Surgical History: Procedure Laterality Date CHOLECYSTECTOMY PROCEDURE: OR CHOLECYSTECTOMY; COMMENT: 2013 OTHER SURGICAL HISTORY 2017 PROCEDURE: ---- OTHER ----; COMMENT: left shoulder WISDOM TOOTH EXTRACTION 10/2010 PROCEDURE: HISTORICAL WISDOM TEETH EXTRACTION; COMMENT: all 4 WISDOM TOOTH EXTRACTION PROCEDURE: HISTORICAL WISDOM TEETH EXTRACTION Family History Problem Relation Name Age of Onset No Known Problems Father Diabetes Maternal Grandmother Other (Other: blood clot ) Mother 34.00 ?assoc with OCP? Heart attack Mother smoker Social History Tobacco Use Smoking status: Never Smokeless tobacco: Never Substance Use Topics Alcohol use: Yes Drug use: Yes Types: Marijuana/Cannabis Review of Systems Review of Systems Skin: Positive for wound (cat bite and scratches L hand/wrist). All other systems reviewed and are negative. Physical Exam ED Triage Vitals [01/08/25 2209] Temp Heart Rate Resp BP -- 73 18 130/86 SpO2 Temp Source Heart Rate Source Patient Position 100 % Oral -- -- BP Location FiO2 (%) -- -- Physical Exam Vitals and nursing note reviewed. Constitutional: Appearance: Normal appearance. Skin: General: Skin is warm and dry. Capillary Refill: Capillary refill takes less than 2 seconds. Comments: Cat bite and scratches with lymphangitis L forearm. Neurological: Mental Status: She is alert and oriented to person, place, and time. Psychiatric: Mood and Affect: Mood normal. Behavior: Behavior normal. ED Course & MDM Medical Decision Making 34-year-old female presents to the emergency department with red streaks going up her arm from a cat bite. She suffered a cat bite approximately 0630 yesterday morning presented to urgent care and was started on Augmentin. Has taken 2 doses. Was also here in our emergency department for the initiation of the rabies series. She did not have the lymphangitis at that time. Tonight in the shower she noticed the red streak going up her arm and presented for treatment. When nursing went to bring pt back from the WR she had left AMA. Tried to call pt using number in chart and number is not in service. Amount and/or Complexity of Data Reviewed Labs: ordered. Bettina Tellez NP 01/09/25 0015 Bettina Tellez NP 01/09/25 0019 Bettina Tellez NP 01/09/25 0531 Bettina Tellez NP 01/09/25 0600 Cosigned by Milton Louis MD at 01/09/2025 6:10 PM EDT documented in this encounter Plan of Treatment Not on file documented as of this encounter Procedures Procedure Name Priority Date/Time Associated Diagnosis Comments CBC WITH AUTO DIFFERENTIAL STAT 01/09/2025 1:24 AM EDT CULTURE BLOOD STAT 01/09/2025 1:24 AM EDT CULTURE BLOOD STAT 01/09/2025 1:24 AM EDT CBC AND DIFFERENTIAL STAT 01/09/2025 1:24 AM EDT C-REACTIVE PROTEIN STAT 01/09/2025 1: 24 AM EDT COMPREHENSIVE METABOLIC PANEL STAT 01/09/2025 1:24 AM EDT documented in this encounter Results * (ABNORMAL) CBC auto differential (01/09/2025 1:24 AM EDT) [facility] WBC 11.0(H) 4.8 - 10.8 K/mcL LAB HEMETOLOGY METHOD 01/09/2025 1:56 AM EDT [facility] RBC 4.70 3.80 - 4.80 M/mcL LAB HEMETOLOGY METHOD 01/09/2025 1:56 AM EDT [facility] Hemoglobin 13.8 11.5 - 16.0 g/dL LAB HEMETOLOGY [facility] Hematocrit 42.2 35.0 - 47.0 % LAB HEMETOLOGY METHOD 01/09/2025 1:[facility] MCV 90.4 79.0 - 98.0 FL LAB HEMETOLOGY METHOD 01/09/2025 1:56 [facility] MCH 29.6 27.0 - 32.0 pcg LAB HEMETOLOGY METHOD 01/09/2025 1:56 AM [facility] MCHC 32.7 32.0 - 37.0 g/dL LAB HEMETOLOGY METHOD 01/09/2025 1:56 AM [facility] RDW 12.6 11.0 - 15.0 % LAB HEMETOLOGY METHOD 01/09/2025 1:[facility] Platelets 192 130 - 400 K/mcL LAB HEMETOLOGY METHOD 01/09/2025 1:56 AM EDT [facility] MPV 11.0 7.0 - 11.0 FL LAB HEMETOLOGY METHOD 01/09/2025 1:56 AM EDT [facility] NRBC 0.0 <1.0 % LAB HEMETOLOGY METHOD 01/09/2025 1:56 AM [facility] NRBC Absolute 0.00 <0.10 K/mcL LAB HEMETOLOGY METHOD 01/09/2025 1:[facility] Neutrophils Relative 80.4 % LAB HEMETOLOGY METHOD 01/09/2025 1:56 AM [facility] Lymphocytes Relative 10.3 % LAB HEMETOLOGY METHOD 01/09/2025 1:56 AM [facility] Monocytes Relative 7.8 % LAB HEMETOLOGY METHOD 01/09/2025 1:56 AM [facility] Eosinophils Relative 0.7 % LAB HEMETOLOGY METHOD 01/09/2025 1:56 AM [facility] Basophils Relative 0.5 % LAB HEMETOLOGY METHOD 01/09/2025 1:56 AM [facility] Immature Granulocytes Relative 0.3 % LAB HEMETOLOGY METHOD 01/09/2025 1:56 AM [facility] Neutrophils Absolute 8.81(H) 1.50 - 7.00 K/mcL LAB HEMETOLOGY METHOD 01/09/2025 1:56 AM [facility] Lymphocytes Absolute 1.13 1.00 - 5.00 K/mcL LAB HEMETOLOGY METHOD 01/09/2025 1:56 AM [facility] Monocytes Absolute 0.86 0.20 - 1.00 K/mcL LAB HEMETOLOGY METHOD 01/09/2025 1:56 AM [facility] Eosinophils Absolute 0.08 0.00 - 0.50 K/mcL LAB HEMETOLOGY METHOD 01/09/2025 1:56 AM [facility] Basophils Absolute 0.06 0.00 - 0.20 K/mcL LAB HEMETOLOGY METHOD 01/09/2025 1:56 AM [facility] Immature Granulocytes Absolute 0.03 0.00 - 0.03 K/mcL LAB HEMETOLOGY METHOD 01/09/2025 1:56 AM EDT [facility] Blood Venous blood specimen / Unknown Venipuncture / Unknown 01/09/2025 1:24 AM EDT 01/09/2025 1:49 AM EDT Bettina Tellez NP LAB BLOOD ORDERABLES Tia l Result Performing Organization Address [facility] Co de Phone Number [facility] [address] [place] [address], [place] [phone] * Blood Culture, Peripheral #2 (01/09/2025 1:24 AM EDT) Culture, Blood No growth at 5 days LAB MICROBIOLOGY METHOD 01/14/2025 6:01 AM EDT [facility] Blood Venous blood specimen / Unknown Venipuncture / Unknown 01/09/2025 1:24 AM EDT 01/09/2025 1:50 AM EDT Bettina Tellez NP LAB MICROBIOLOGY - GENERA L ORDERABLES Final Result Performing Organization Address [facility] de Phone Number [facility] [address] [place] [address], [place] [phone] * Blood Culture, Peripheral #1 (01/09/2025 1:24 AM EDT) Culture, Blood No growth at 5 days LAB MICROBIOLOGY METHOD 01/14/2025 6:01 AM EDT [facility] Blood Venous blood specimen / Unknown Venipuncture / Unknown 01/09/2025 1:24 AM EDT 01/09/2025 1:50 AM EDT Bettina Tellez NP LAB MICROBIOLOGY - GENERA L ORDERABLES Final Result Performing Organization Address City/[facility] Co de Phone Number [facility] [address] [place] [address], [place] [phone] * (ABNORMAL) C-reactive protein (01/09/2025 1:24 AM EDT) [facility] C-Reactive Protein 0.91(H) <=0.50 mg/dL LAB CHEMISTRY METHOD 01/09/2025 2:15 AM EDT [facility] Blood Venous blood specimen / Unknown Venipuncture / Unknown 01/09/2025 1:24 AM EDT 01/09/2025 1:49 AM EDT Bettina Tellez NP LAB BLOOD ORDERABLES Tia salas Result [facility] [address] [place] [address], [place] [phone] * (ABNORMAL) Comprehensive Metabolic Panel (CMP) (01/09/2025 1:24 AM EDT) [facility] Sodium 139 133 - 145 mmol/L LAB CHEMISTRY METHOD 01/09/2025 2:15 AM EDT [facility] Potassium 3.7 3.5 - 5.5 mmol/L LAB CHEMISTRY METHOD 01/09/2025 2:15 AM [facility] Chloride 109 96 - 110 mmol/L LAB CHEMISTRY METHOD 01/09/2025 2:15 AM EDT [facility] CO2 25 21 - 32 mmol/L LAB CHEMISTRY METHOD 01/09/2025 2:15 AM EDT [facility] Anion Gap 5 3 - 11 LAB CHEMISTRY METHOD 01/09/2025 2:15 AM EDT [facility] Glucose 106(H) 70 - 100 mg/dL LAB CHEMISTRY METHOD 01/09/2025 2:15 AM EDT [facility] BUN 14 5 - 25 mg/dL LAB CHEMISTRY METHOD 01/09/2025 2:15 AM EDT [facility] Creatinine 0.77 0.50 - 1.10 mg/dL LAB CHEMISTRY METHOD 01/09/2025 2:15 AM T [facility] eGFR 105 >=60 mL/min/1. 73m2 LAB CHEMISTRY METHOD 01/09/2025 2:15 AM [facility] Comment:Calculation based on the Chronic Kidney Disease Epidemiology Collaboration (CKD-EPI) equation refit without adjustment for race. BUN/Creatinine Ratio 18.2 LAB CHEMISTRY METHOD 01/09/2025 2:15 AM T [facility] Calcium 8.9 8.5 - 10.5 mg/dL LAB CHEMISTRY METHOD 01/09/2025 2:15 AM [facility] AST (SGOT) 12 10 - 42 unit/L LAB CHEMISTRY METHOD 01/09/2025 2:15 AM [facility] ALT (SGPT) 22 10 - 60 unit/L LAB CHEMISTRY METHOD 01/09/2025 2:15 AM [facility] Alkaline Phosphatase 101 42 - 121 unit/L LAB CHEMISTRY METHOD 01/09/2025 2:15 AM [facility] Total Protein 7.2 6.0 - 8.0 g/dL LAB CHEMISTRY METHOD 01/09/2025 2:15 AM [facility] Albumin 4.1 3.2 - 5.0 g/dL LAB CHEMISTRY METHOD 01/09/2025 2:15 AM [facility] Total Bilirubin 0.3 0.0 - 1.4 mg/dL LAB CHEMISTRY METHOD 01/09/2025 2:15 AM [facility] Blood Venous blood specimen / Unknown Venipuncture / Unknown 01/09/2025 1:24 AM EDT 01/09/2025 1:49 AM EDT us Bettina Tellez NP LAB BLOOD ORDERABLES Tia l Result [facility] [address] [place] [address], documented in this encounter Visit Diagnoses Not on filedocumented in this encounter Active and Recently Administered Medications Orders Medications Ordered That Ervin ht Not Have Been Administered Count Last Ordered Date First Ordered Date oxyCODONE-acetaminophen (PER COCET) 5-325 mg per tablet 1 tablet 1 01/09/2025 piperacillin-tazobactam (ZOS YN) 3.375 g in sodium chloride 0.9 % 100 mL IVPB 1 01/09/2025 documented in this encounter Care Teams Epitaxial Reactor Operator Relationship Specialty Start Date End Date Irena Zeng MD [address] [facility] [address] [place], [place] PCP - General Internal Medicine 06/26/18 documented as of this encounter
--- OUTSIDE RECORDS SUMMARY | 2025-01-11 09:00 | XMS_ITS | Encounter Summary ---
Author Organization [facility] Address [address] [place] [address] Phone Care Team Providers Care Acupuncture Physician Name Role Phone Irena Zeng MD Primary Care Provider Reason for Visit * Reason Comments Rabies Vaccine Pt is here for 2nd r abies vaccine. Encounter Details Date Type Department Care Team (Late st Contact Info) Description 01/11/2025 9:00 AM EDT Office Visit [facility] [address] [place] [address] [place], PIECE DYEING MACHINE TENDER [address] [place] [address] [email or web address] Need for rabies vaccination (Primary Dx) Social History Tobacco Use Types Packs/Day Years [...] Sign Reading Time Taken Comments Blood Pressure 123/76 01/11/2025 9:22 AM EDT Pulse 71 01/11/2025 9:22 AM EDT Temperature 36.7 C (98.1 F) 01/11/2025 9:22 AM EDT Respiratory Rate 20 01/11/2025 9:22 AM EDT Oxygen Saturation 100% 01/11/2025 9:22 AM EDT Inhaled Oxygen Concentration - - Weight 61.2 kg (135 lb) 01/11/2025 9:22 AM EDT Height 154.9 cm (5' 1 ) 01/11/2025 9:22 AM EDT Body Mass Index 25.51 01/11/2025 9:22 AM EDT documented in this encounter Patient Instructions * Patient Instructions* [place] CNP - 01/11/2025 9:00 AM EDT You were seen for rabies vaccine #2 today. Common side effects include soreness, redness, swelling, and itching at the injection site. You may also experience headache, nausea, abdominal pain, muscle aches, or dizziness. If you experience a severe allergic reaction or have any issues breathing, talking, or swallowing, report to the emergency department immediately for further care. Follow-up for rabies vaccinations #3 and #4 as already planned. Vaccine #3 should be done on 01/15 Vaccine #4 should be done on 01/22 documented in this encounter Progress Notes * [place] CNP - 01/11/2025 9:00 AM EDT Images from the original note were not included. Subjective: Patient ID: Katharina Brooks is a 34 y.o. female. Patient presents with the request for second rabies vaccine. Patient was seen in the emergency room on 01/08 after a encounter with a stray cat. Patient had several scratches and bites from the stray cat. Patient was given the rabies vaccine and the immunoglobulin. Patient had no reaction with the vaccine or the immunoglobulin. Review of Systems Constitutional: Negative for chills, fatigue and fever. Respiratory: Negative for cough and shortness of breath. Neurological: Negative for weakness and headaches. All other systems reviewed and are negative. Skin: Negative for persistent rash. Vitals: 01/11/25 0922 BP: 123/76 BP Location: Left arm Patient Position: Sitting Pulse: 71 Resp: 20 Temp: 36.7 ??C (98.1 ??F) TempSrc: Temporal SpO2: 100% Weight: 61.2 kg (135 lb) Height: 154.9 cm (5' 1 ) Objective: Physical Exam Vitals reviewed. Constitutional: General: She is not in acute distress. Appearance: She is not ill-appearing, toxic-appearing or diaphoretic. Cardiovascular: Rate and Rhythm: Normal rate. Pulmonary: Effort: Pulmonary effort is normal. Skin: Findings: No rash. Neurological: Mental Status: She is alert. No results found for this visit on 01/11/25. Procedure: Procedures Assessment/Plan: Diagnosis Plan 1. Need for rabies vaccination Assessment and Plan: MDM Patient was seen for rabies vaccination #2. Patient states they had no previous reaction with the first vaccination Treatment Rabies vaccination #2 prescribed Education Common side effects reviewed including soreness, redness, swelling, and itching at the injection site. Informed they may also experience headache, nausea, abdominal pain, muscle aches, or dizziness. If they experience a severe allergic reaction or have any issues breathing, talking, or swallowing,advised they report to the emergency department immediately for further care. Patient waited 15 minutes in the clinic after vaccination and was discharged without incident Advised to follow-up as planned for rabies vaccinations #3 and #4. documented in this encounter Plan of Treatment Not on file documented as of this encounter Visit Diagnoses Diagnosis Need for rabies vaccination- Primary Need for prophylactic vaccination and inoculation against rabies documented in this encounter Care Teams Acupuncture Physician Relationship Specialty Start Date End Date Irena Zeng MD [address] [place] [address] [place] [address] PCP - General 05/12/22 documented as of this encounter Additional Source Comments The information contained in this document represents components of the legal health record. It is not the complete legal health record.[facility]
--- OUTSIDE RECORDS SUMMARY | 2025-01-14 14:48 | XMS_ITS | Encounter Summary ---
Author Organization [facility] Address [address] [place] [address] Care Team Providers Care Umbrella Finisher Name Role Phone Irena Zeng MD Primary Care Provider Jaki vailable Encounter Details Date Type Department Care Team Description 06/24/2022 Orders Only Bariatric Surgery - [place] [address] [facility] [address] [place] [address] Carla Urena MD [address] [facility] [address] [place] [address] Obesity (BMI 30-39.9); Daytime somnolence Social History Tobacco Use Types Packs/Day Years [...] file Not on file Not on file COVID-19 Exposure Response Date Recorded In the last 10 days, have yo u been in contact with someone who was confirmed or suspected to have Coronavirus/COVID-19? No / Unsure 06/16/2022 8:49 AM EST documented as of this encounter Plan of Treatment Not on file documented as of this encounter Procedures Procedure Name Priority Date/Time Associated Diagnosis Comments SLEEP STUDY-FULL NEURO 16 CHANNEL Routine 06/21/2022 Obesity (BMI 30-39.9) Daytime somnolence documented in this encounter Results * SLEEP STUDY-FULL NEURO 16 CHANNEL (06/21/2022) Carla Urena MD PULMONOLOGY documented in this encounter Visit Diagnoses Diagnosis Obesity (BMI 30-39.9) Obesity, unspecified Daytime somnolence Hypersomnia, unspecified documented in this encounter Care Teams Umbrella Finisher Relationship Specialty Start Date End Date Irena Zeng MD PCP - General Internal Medicine 06/26/18 documented as of this encounter
--- OUTSIDE RECORDS SUMMARY | 2025-01-14 14:48 | XMS_ITS | Encounter Summary ---
Author Organization [facility] Address [address] [place] [address] Care Team Providers Care Jd Edwards Developer Name Role Phone Irena Zeng MD Primary Care Provider Jaki vailable Reason for Visit * Reason Onset Date Comments TEST RESULTS 06/15/2022 Encounter Details Date Type Department Care Team Description 06/15/2022 Telephone General Surgery - [place] [address] [facility] [address] [place] [address] Carla Urena MD [address] [address] TEST RESULTS Social History Tobacco Use Types Packs/Day Years [...] AM EST documented as of this encounter Miscellaneous Notes * Telephone Encounter - Alejandrina Felix M.A. - 06/17/2022 2:35 PM EST I called and left vm for her to call back for results. * Telephone Encounter - Alejandrina Felix M.A. - 06/17/2022 2:35 PM EST ----- Message from Carla Urena MD sent at 06/17/2022 12:57 PM EST ----- Please call patient with results. Her vitamin B12 is a little elevated, if she is taking any supplemental vitamin B-12, she can hold it for now. Vitamin D is low, I will send a high-dose prescriptionto your pharmacy. Rest of the labs are normal. * Telephone Encounter - Reyna Gutierrez - 06/15/2022 2:37 PM EST Pt requesting call from Dr. Urena to discuss lab results documented in this encounter Plan of Treatment Not on file documented as of this encounter Visit Diagnoses Not on filedocumented in this encounter Care Teams Jd Edwards Developer Relationship Specialty Start Date End Date Irena Zeng MD PCP - General Internal Medicine 06/26/18 documented as of this encounter
--- OUTSIDE RECORDS SUMMARY | 2025-01-14 14:48 | XMS_ITS | Encounter Summary ---
Author Organization [facility] Address [address] [place] [address] Care Team Providers Care Hostess Name Role Phone Irena Zeng MD Primary Care Provider Jaki vailable Encounter Details Date Type Department Care Team Description 02/04/2020 Hospital Medical Records [address] [place] [address] Edith Gómez CNM [address] [place] [id number] Social History Tobacco Use Types Packs/Day Years [...] on filedocumented in this encounter Care Teams Hostess Relationship Specialty Start Date End Date Irena Zeng MD PCP - General Internal Medicine 06/26/18 documented as of this encounter
--- OUTSIDE RECORDS SUMMARY | 2025-01-14 14:48 | XMS_ITS | Encounter Summary ---
Author Organization [facility] Address [address] [place] [address] Care Team Providers Care Air Value Tester Name Role Phone Irena Zeng MD Primary Care Provider Jaki vailable Encounter Details Date Type Department Care Team Description 07/10/2018 Release of Information Medical Records [address] [place] [id number] Abstract, Provider Social History Tobacco Use Types [...] on filedocumented in this encounter Care Teams Air Value Tester Relationship Specialty Start Date End Date Irena Zeng MD PCP - General Internal Medicine 06/26/18 documented as of this encounter
--- OUTSIDE RECORDS SUMMARY | 2025-01-14 14:48 | XMS_ITS | Encounter Summary ---
Author Organization [facility] Address [address] [place] [address] Care Team Providers Care Rn Coronary Care Unit Name Role Phone Bren Dunham MD Primary Care Provider Unava ilable Ramon Grigsby MD Primary Care Provider Unavailable Bren Dunham MD Primary Care Provider Unava ilable Irena Zeng MD Primary Care Provider Jaki vailable Encounter Details Date Type Department Care Team Description 06/03/2012 Night Triage Doc Medical Records [address] [place] [id number] Abstract, Provider Social History Tobacco Use Types Packs/Day Years Used Date Smoking Tobacco: Never Cigarettes Smokeless Tobacco: Never Alcohol Use Standard Drinks/Week Comments No 0 (1 standard drink = 0.6 oz [...] on filedocumented in this encounter Care Teams Rn Coronary Care Unit Relationship Specialty Start Date End Date Bren Dunham MD PCP - General Internal Medicine 05/03/11 12/12/12 Ramon Grigsby MD PCP - General Internal Medicine 12/13/1204/26 Bren Dunham MD PCP - General Internal Medicine 03/27/13 06/25/18 Irena Zeng MD PCP - General Internal Medicine 06/26/18 documented as of this encounter
--- OUTSIDE RECORDS SUMMARY | 2025-01-14 14:48 | XMS_ITS | Encounter Summary ---
Author Organization [facility] Address [address] [place] [address] Care Team Providers Care Personal Driver Name Role Phone Irena Zeng MD Primary Care Provider Jaki vailable Reason for Visit * Reason Onset Date Comments APPOINTMENT 02/18/2020 Encounter Details Date Type Department Care Team Description 02/18/2020 Telephone OBGYN - [place] [address] [place] [address] Rosa Isela Arriola MD [address] [place] [id number] APPOINTMENT Social History Tobacco Use Types Packs/Day Years [...] on file documented as of this encounter Miscellaneous Notes * Telephone Encounter - Ana Dye C.M.A. - 03/30/2020 1:52 PM EST I called phone number on file, but a male answered and stated this was no longer the pt's phone number. Unable to reach by phone letter sent to pt. DL * Telephone Encounter - Ana Dye C.M.A. - 03/23/2020 10:32 AM EST Left pt message to return call. DL * Telephone Encounter - Ana Dye C.M.A. - 03/16/2020 9:28 AM EST Left pt message to return call. Unable to reach by phone letter sent to the pt. DL * Telephone Encounter - Ana Dye C.M.A. - 03/09/2020 1:05 PM EDT Left pt message to return call. DL * Telephone Encounter - Ana Dye C.M.A. - 03/02/2020 10:10 AM EDT Left pt message to return call. DL * Telephone Encounter - Betzaida Andrade - 02/18/2020 11:19 AM EDT Pt needs to schedule post visit pt will be 6 weeks post 03/18/2020 pt has until 16 weeks to complete appointment 05/27/2019. Left message to patient to return call. documented in this encounter Plan of Treatment Not on file documented as of this encounter Visit Diagnoses Not on filedocumented in this encounter Care Teams Personal Driver Relationship Specialty Start Date End Date Irena eZng MD PCP - General Internal Medicine 06/26/18 documented as of this encounter
--- OUTSIDE RECORDS SUMMARY | 2025-01-14 14:49 | XMS_ITS | Clinical Summary ---
Author Organization [facility] Address [address] [place] [address] Phone Care Team Providers Care Coupling Machine Operator Name Role Phone Irena Zeng MD Primary Care Provider Allergies No known active allergies Medications sertraline (ZOLOFT) 50 MG tablet Take 50 mg by mouth every morning. 04/21/2022 Active sertraline (ZOLOFT) 100 MG tablet Take 100 mg by mouth. 10/29/2023 Active spironolactone (ALDACTONE) 25 MG tablet Take 1 tablet by mouth. Active loperamide (IMODIUM) 2 mg capsule TAKE 2 CAPSULES NOW, THEN 1 CAP AFTER EVERY LOOSE BOWEL MOVEMENT DIRECTED MAXIMUM 6/DAY 11/13/2024 Active ketoconazole (NIZORAL) 2 % shampoo APPLY TO SCALP 2X/WK, LEAVE ON 5 MINUTES THEN WASH OFF 10/12/2024 Active clindamycin (CLEOCIN T) 1 % lotion APPLY TO FACE, BACK, AND CHEST EVERY MORNING AFTER BPO WASH 10/12/2024 Active buPROPion (WELLBUTRIN XL) 150 MG ER 24 hr tablet Take 1 tablet by mouth every morning. 12/06/2024 Active Active Problems Problem Noted Date Diagnosed Date Pilar cyst of scalp 05/23/2022 Encounters Date Type Department Care Team Description 01/11/2025 9:00 AM EDT Office Visit [facility] at [address] [place] [address] [place] CNP Need for rabies vaccination (Primary Dx) from Last 3 Months Immunizations Immunization Administration Dates Next Due COVID-19 (Pre-03/06) Moderna Vaccine, mRNA, PF 08/04/2021 COVID-19 (Pre) Pfizer Vaccine, Bivalent 12+ 09/12/2022 COVID-19 (Pre) Pfizer Vaccine, mRNA, PF 02/01/2021,01/11/2021 Hepatitis B Adult 03/15/1995,08/13/1994,04/14/19 94 Influenza, Unspecified Formulation 01/26/2023 MMR 10/16/2020,01/13/1997 Rabies Fibroblast Culture 01/11/2025,01/08/2025 Tdap 11/26/2019 Varicella 12/03/2007,12/03/2002 Family History Medical [...] Mass Index 25.51 01/11/2025 9:22 AM EDT Plan of Treatment Health Maintenance Due Date Last Done Comments POTASSIUM LEVEL 1992 DEPRESSION SCREENING 2004 HEPATITIS C SCREENING 2010 HIV ONE-TIME SCREENING (18-65 YEARS) 2010 PAP SMEAR 2013 INFLUENZA VACCINE (#1) 2024 , 01/26/2023, 02/23/2022, Additional history exists Adult Td,Tdap Booster 11/25/2029 11/26/2019 , 12/04/2018, 02/08/2012, Additional history exists HIB VACCINES Completed 03/15/1995, 05/1994, 04/14/1994 MENINGOCOCCAL VACCINES (ACWY) Aged Out 12/01/2006 No longer eligible based on patient's age to complete this topic SMOKING STATUS SCREENING (Once After 26 Yrs) Completed 05/23/2022 COVID-19 VACCINE Completed 03/11/2024, 05/2022, 08/04/2021, Additional history exists HEPATITIS A VACCINES Aged Out No long er eligible based on patient's age to complete this topic MENINGOCOCCAL VACCINES (B) Aged Out N o longer eligible based on patient's age to complete this topic PNEUMOCOCCAL VACCINES (0-49 years) Aged Out No longer eligible based on patient's age to complete this topic Medical Devices Not on file Insurance [facility] [employer] Care Teams Coupling Machine Operator Relationship Specialty Start Date End Date Irena Zeng MD [address] [place] [address] [place] [address] PCP - General 05/12/22 Additional Source Comments The information contained in this document represents components of the legal health record. It is not the complete legal health record.[facility]
--- OUTSIDE RECORDS SUMMARY | 2025-01-14 14:49 | XMS_ITS | Clinical Summary ---
Author Organization [employer] Address [address] [facility] [address] [place] [address] Care Team Providers Care Plant Sciences Professor Name Role Phone Provider, Not In System [...] 12/01/2006 Moderna Covid-19 Vaccine 12+ 08/04/2021 Novel [id number], all formulations 06/10/2009 Pfizer Covid-19 Vaccine 12+ [...] Most Recently Relevant to Health Maintenance Insurance [facility] MEDICAID STAND ADULT Care Teams Plant Sciences Professor Relationship Specialty Start Date End Date Provider, Not In System PCP - General 08/14/23
--- OUTSIDE RECORDS SUMMARY | 2025-01-14 14:49 | XMS_ITS | Clinical Summary ---
Author Organization [address] [place] [address] Address [address] [place] [address] Phone Care Team Providers Care Student Ministry Pastor Name Role Phone Irena Zeng MD Primary Care Provider [phone] Allergies No known active allergies Medications UNABLE [...] Encounters Date Type Department Care Team Description 01/08/2025 9:48 PM EDT - 01/09/2025 4:55 AM EDT Emergency [facility] Emergency [address] [place] [address] Discharge Disposition: Left Against Medical Advice 01/08/2025 9:14 AM EDT - 01/08/2025 11:04 AM EDT Emergency [facility] Emergency [address] [place] [address] Janeen Christopher MD Cat bite of forearm, right, initial encounter (Primary Dx); Need for post exposure prophylaxis for rabies Discharge Disposition: Home or Self Care from Last 3 Months Immunizations Name Administration Dates Next Due HPV, Quadrivalent 04/12/2012,02/08/2012 Human Rabies, Chicken Fibrob last Cell Culture, (Rabavert) 01/08/2025 Tdap Tetanus diptheria acell ular pertussis (Boostrix; Adacel) 7yo and older 02/08/2012 Surgical History Surgery Date Site/Laterality Comments WISDOM TOOTH EXTRACTION 10/2010 PROCEDURE: HISTORICAL WISDOM TEETH EXTRACTION; COMMENT: all 4 WISDOM TOOTH EXTRACTION PROCEDURE: HISTORICAL WISDOM TEETH EXTRACTION CHOLECYSTECTOMY PROCEDURE: [place] CHOLECYSTECTOMY; COMMENT: 2013 OTHER SURGICAL HISTORY 2017 [...] Grandmother Alive DM, HTN Mother Alive asthma, [place] age 34 during surgery for a clot [...] Pulse 73 01/08/2025 10:09 PM EDT Temperature 36.7 C (98.1 F) 01/08/2025 9:13 AM EDT Respiratory Rate 18 01/08/2025 10:09 PM EDT Oxygen Saturation 100% 01/08/2025 10:09 PM EDT Inhaled Oxygen Concentration - - Weight 61.2 kg (135 lb) 01/08/2025 9:13 AM EDT Height 154.9 cm (5' 1 ) 01/08/2025 9:13 AM EDT Body Mass Index 25.51 01/08/2025 9:13 AM EDT Plan of Treatment Health Maintenance [...] AUTO DIFFERENTIAL STAT 01/09/2025 1:24 AM EDT CBC AND DIFFERENTIAL STAT 01/09/2025 1:24 AM EDT C-REACTIVE PROTEIN STAT 01/09/2025 1: 24 AM EDT COMPREHENSIVE METABOLIC PANEL STAT 01/09/2025 1:24 AM EDT CULTURE BLOOD STAT 01/09/2025 1:24 AM EDT CULTURE BLOOD STAT 01/09/2025 1:24 AM EDT LIPID PANEL Routine 06/13/2022 HM PAP SMEAR Routine 02/11/2016 HEPATITIS C SCREENING Routine 12/26/2012 HIV SCREENING Routine 12/26/2012 from Last 3 Months or Most Recently Relevant to Health Maintenance Results * (ABNORMAL) CBC auto differential (01/09/2025 1:24 AM EDT) WBC 11.0(H) 4.8 - 10.8 K/mcL LAB HEMETOLOGY METHOD 01/09/2025 1:56 AM EDT [facility] RBC 4.70 3.80 - 4.80 M/mcL LAB HEMETOLOGY METHOD 01/09/2025 1:56 AM EDT [facility] Hemoglobin 13.8 11.5 - 16.0 g/dL LAB HEMETOLOGY METHOD 01/09/2025 1:56 AM EDT [facility] Hematocrit 42.2 35.0 - 47.0 % LAB HEMETOLOGY METHOD 01/09/2025 1:56 AM EDT [facility] MCV 90.4 79.0 - 98.0 FL LAB HEMETOLOGY METHOD 01/09/2025 1:56 AM [facility] MCH 29.6 27.0 - 32.0 pcg LAB HEMETOLOGY [facility] MCHC 32.7 32.0 - 37.0 g/dL LAB HEMETOLOGY METHOD 01/09/2025 1:56 AM [facility] RDW 12.6 11.0 - 15.0 % LAB HEMETOLOGY METHOD 01/09/2025 1:56 AM [facility] Platelets 192 130 - 400 K/mcL LAB HEMETOLOGY METHOD 01/09/2025 1:56 AM [facility] MPV 11.0 7.0 - 11.0 FL LAB HEMETOLOGY METHOD 01/09/2025 1:56 AM [facility] NRBC 0.0 <1.0 % LAB HEMETOLOGY METHOD 01/09/2025 1:56 AM [facility] NRBC Absolute 0.00 <0.10 K/mcL LAB HEMETOLOGY METHOD 01/09/2025 1:56 AM [facility] Neutrophils Relative 80.4 % LAB HEMETOLOGY METHOD 01/09/2025 1:56 AM [facility] Lymphocytes Relative 10.3 % LAB HEMETOLOGY METHOD 01/09/2025 1:56 AM [facility] Monocytes Relative 7.8 % LAB HEMETOLOGY METHOD 01/09/2025 1:56 AM [facility] Eosinophils Relative 0.7 % LAB HEMETOLOGY METHOD 01/09/2025 1:56 AM EDT [facility] Basophils Relative 0.5 % LAB HEMETOLOGY METHOD 01/09/2025 1:56 AM EDT [facility] Immature Granulocytes Relative 0.3 % LAB HEMETOLOGY METHOD 01/09/2025 1:56 AM EDT [facility] Neutrophils Absolute 8.81(H) 1.50 - 7.00 K/mcL LAB HEMETOLOGY METHOD 01/09/2025 1:56 AM EDT [facility] Lymphocytes Absolute 1.13 1.00 - 5.00 K/mcL LAB HEMETOLOGY METHOD 01/09/2025 1:56 AM EDT [facility] Monocytes Absolute 0.86 0.20 - 1.00 K/mcL LAB HEMETOLOGY METHOD 01/09/2025 1:56 AM EDT [facility] Eosinophils Absolute 0.08 0.00 - 0.50 K/mcL LAB HEMETOLOGY METHOD 01/09/2025 1:56 AM EDT [facility] Basophils Absolute 0.06 0.00 - 0.20 K/mcL LAB HEMETOLOGY METHOD 01/09/2025 1:56 AM EDT [facility] Immature Granulocytes Absolute 0.03 0.00 - 0.03 K/mcL LAB HEMETOLOGY METHOD 01/09/2025 1:56 AM EDT [facility] Blood Venous blood specimen / Unknown Venipuncture / Unknown 01/09/2025 1:24 AM EDT 01/09/2025 1:49 AM EDT us Bettina Tellez NP LAB BLOOD ORDERABLES Tia salas Result [facility] [address] [place] [address], * Blood Culture, Peripheral #2 (01/09/2025 1:24 AM EDT) Only the most recent of2 resultswithin the time period is included. Pathologist [facility] Culture, Blood No growth at 5 days LAB MICROBIOLOGY METHOD 01/14/2025 6:01 AM EDT [facility] Blood Venous blood specimen / Unknown Venipuncture / Unknown 01/09/2025 1:24 AM EDT 01/09/2025 1:50 AM EDT Bettina Tellez NP LAB MICROBIOLOGY - GENERA L ORDERABLES Final Result Performing Organization Address [facility]/ZIP Co de Phone Number [facility] [address] [place] [address], [place] [phone] * (ABNORMAL) C-reactive protein (01/09/2025 1:24 AM EDT) [facility] C-Reactive Protein 0.91(H) <=0.50 mg/dL LAB CHEMISTRY METHOD 01/09/2025 2:15 AM EDT [facility] Blood Venous blood specimen / Unknown Venipuncture / Unknown 01/09/2025 1:24 AM EDT 01/09/2025 1:49 AM EDT Bettina Tellez NP LAB BLOOD ORDERABLES Tia l Result Performing Organization Address [facility]/ZIP Co de Phone Number [facility] [address] [place] [address], [place] [phone] * (ABNORMAL) Comprehensive Metabolic Panel (CMP) (01/09/2025 1:24 AM EDT) [facility] Sodium 139 133 - 145 mmol/L LAB CHEMISTRY METHOD 01/09/2025 2:15 AM EDT [facility] Potassium 3.7 3.5 - 5.5 mmol/L LAB CHEMISTRY METHOD 01/09/2025 2:15 AM EDT [facility] Chloride 109 96 - 110 mmol/L LAB CHEMISTRY METHOD 01/09/2025 2:15 AM [facility] CO2 25 21 - 32 mmol/L LAB CHEMISTRY METHOD 01/09/2025 2:15 AM [facility] Anion Gap 5 3 - 11 LAB CHEMISTRY METHOD 01/09/2025 2:15 AM [facility] Glucose 106(H) 70 - 100 mg/dL LAB CHEMISTRY METHOD 01/09/2025 2:15 AM [facility] BUN 14 5 - 25 mg/dL LAB CHEMISTRY METHOD 01/09/2025 2:15 AM [facility] Creatinine 0.77 0.50 - 1.10 mg/dL LAB CHEMISTRY METHOD 01/09/2025 2:15 AM [facility] eGFR 105 >=60 mL/min/1. 73m2 LAB CHEMISTRY METHOD 01/09/2025 2:15 AM [facility] Comment:Calculation based on the Chronic Kidney Disease Epidemiology Collaboration (CKD-EPI) equation refit without adjustment for race. BUN/Creatinine Ratio 18.2 LAB CHEMISTRY METHOD 01/09/2025 2:15 AM [facility] Calcium 8.9 8.5 - 10.5 mg/dL LAB CHEMISTRY METHOD 01/09/2025 2:15 AM [facility] AST (SGOT) 12 10 - 42 unit/L LAB CHEMISTRY METHOD 01/09/2025 2:15 AM [facility] ALT (SGPT) 22 10 - 60 unit/L LAB CHEMISTRY METHOD 01/09/2025 2:15 AM [facility] Alkaline Phosphatase 101 42 - 121 unit/L LAB CHEMISTRY METHOD 01/09/2025 2:15 AM [facility] Total Protein 7.2 6.0 - 8.0 g/dL LAB CHEMISTRY METHOD 01/09/2025 2:15 AM [facility] Albumin 4.1 3.2 - 5.0 g/dL LAB CHEMISTRY METHOD 01/09/2025 2:15 AM EDT [facility] Total Bilirubin 0.3 0.0 - 1.4 mg/dL LAB CHEMISTRY METHOD 01/09/2025 2:15 AM EDT [facility] Blood Venous blood specimen / Unknown Venipuncture / Unknown 01/09/2025 1:24 AM EDT 01/09/2025 1:49 AM EDT Bettina Tellez NP LAB BLOOD ORDERABLES Tia l Result [facility] [address] [place] [address], * Lipid panel (06/13/2022) [facility] LDL/HDL Ratio 4 0 - 4 Triglycerides 136 0 - 150 mg/dL Cholesterol 151 0 - 200 mg/dL HDL 43 >=40 mg/dL LDL Cholesterol 81 0 - 100 mg/dL Blood Venous blood specimen / Unknown Result [facility] Historical Provider LAB BLOOD ORDERABLES Tia l Result * Pap Smear (02/11/2016) [facility] Pap smear abstracted, no interpretation Historical Provider HEALTH MAINTENANCE Final Result * HIV Screening (12/26/2012) [facility] HIV Screening abstracted Historical Provider HEALTH MAINTENANCE Final Result * Hepatitis C Screening (12/26/2012) [facility] Hepatitis C Screening abstracted Historical Provider HEALTH MAINTENANCE Final Result from Last 3 Months or Most Recently Relevant to Health Maintenance Insurance [facility] [employer] [place]ILLA [id number] Care Teams Student Ministry Pastor Relationship Specialty Start Date End Date Irena Zeng MD [address] [facility] [address] [place] PCP - General Internal Medicine 06/26/18
--- OUTSIDE RECORDS SUMMARY | 2025-01-14 14:49 | XMS_ITS | Encounter Summary ---
Author Organization [facility] Address [address] [place] [address] Care Team Providers Care Film Librarian Name Role Phone Bren Dunham MD Primary Care Provider Unava ilable Ramon Grigsby MD Primary Care Provider Unavailable Bren Dunham MD Primary Care Provider Unava ilable Irena Zeng MD Primary Care Provider Jaki vailable Encounter Details Date Type Department Care Team Description 05/30/2011 Night Triage Doc Medical Records [address] [place] [id number] Abstract, Provider Social History Tobacco Use Types Packs/Day Years Used Date Smoking Tobacco: Never Assessed Alcohol Habits Answer Date Recorded How often [...] on filedocumented in this encounter Care Teams Film Librarian Relationship Specialty Start Date End Date Bren Dunham MD PCP - General Internal Medicine 05/03/11 12/12/12 Ramon Grigsby MD PCP - General Internal Medicine 12/13/1204/26 Bren Dunham MD PCP - General Internal Medicine 03/27/13 06/25/18 Irena Zeng MD PCP - General Internal Medicine 06/26/18 documented as of this encounter
--- OUTSIDE RECORDS SUMMARY | 2025-01-14 14:49 | XMS_ITS | Encounter Summary ---
Author Organization [facility] Address [address] [place] [address] Care Team Providers Care Drawing Tender Name Role Phone Irena Zeng MD Primary Care Provider Jaki vailable Encounter Details Date Type Department Care Team Description 01/10/2023 Orders Only Medical Records [address] [place] [address] Carla Urena MD [address] [place] [phone] Social History Tobacco Use Types Packs/Day Years [...] suspected to have Coronavirus/COVID-19? No / Unsure 12/27/2022 8:51 AM EDT documented as of this encounter Plan of Treatment Not on file documented as of this encounter Procedures Procedure Name Priority Date/Time Associated Diagnosis Comments OUTSIDE PATHOLOGY Routine 01/05/2023 documented in this encounter Results * OUTSIDE PATHOLOGY (01/05/2023) Carla Urena MD OUTSIDE LAB documented in this encounter Visit Diagnoses Not on filedocumented in this encounter Care Teams Drawing Tender Relationship Specialty Start Date End Date Irena Zeng MD PCP - General Internal Medicine 06/26/18 documented as of this encounter
[2025-01-24] VITALS (15 sets, daily range): BP systolic 90–127; BP diastolic 61–87; PULSE 53–102; RESP 16–18; TEMP 36.1–36.9; O2SAT 97–100; BMI 25.7
[2025-01-24] MEDS: Lactated Ringers 1,000 ML 100 ML IVCONT (06:40)
[2025-01-24 06:51] LABS: UPreg QC Valid YES
--- NOTE | 2025-01-24 07:10 | HO.ANESPROP2 ---
Documented by User: Diana Sherman NP 01/22/25 10:58 HPI - Anesthesia Eval Consult details Narrative: 34yo F for EUA,Hemorrhoidectomy PMFSH Active Problems Active Problems: All Active Problems Mixed internal and external hemorrhoid (Acute) Bilateral hand numbness (Acute) Cubital tunnel syndrome, bilateral (Acute) Ganglion, left wrist (Acute) Carpal tunnel syndrome on both sides (Acute) History of abnormal cervical Papanicolaou smear (Acute) Screen for sexually transmitted diseases (Acute) Cervical cancer screening (Acute) Well woman exam with routine gynecological exam (Acute) Presence of 52 mg levonorgestrel-releasing intrauterine device (IUD) (Acute) COVID-19 (Acute) Peroneal tendinitis of left lower leg (Acute) Other instability, left shoulder (Acute) Left shoulder pain (Acute) Past Medical History Medical History Mixed internal and external hemorrhoid Depression IUD (intrauterine device) in place History of asthma Family History Family History Mother Heart attack Stroke Family history of problems with anesthesia: No Surgical History Surgical History (Updated 01/24/25 @ 06:10 by Charlene Brown RN) H/O hemorrhoidectomy Hx of appendectomy Hx of gastric bypass Hx of shoulder surgery Hx of cholecystectomy History of Problems with Anesthesia: No Social History Social History Alcohol intake: current Patient Tobacco Use Status: Never used Tobacco Use of substances other than those prescribed or required for medical reasons: No Are you DNR?: No Advance Directives: No Advance Directives Information Provided: Yes Patient : No : No Poor oral hygiene: No Current occupational status: unemployed Current occupation: right handed Sexual orientation: Straight/Heterosexual Gender identity: Female Meds Allergies Allergy/AdvReac Type Severity Reaction Status Date / Time No Known Allergies (No Known Allergy Verified 12/26/24 14:10 Allergies*) Home Medications ?Medication ?Instructions ?Recorded ?Confirmed ?Last Taken ?Type clindamycin phosphate 1 % lotion topical QAM 12/21/20 06/07/23 Unknown History tretinoin 0.025 % topical cream appl topical DIRECTED 12/21/20 06/07/23 Unknown History levonorgestrel (Mirena) intrauterine 03/10/22 06/07/23 Unknown History albuterol sulfate 90 mcg/actuation inhalation 06/07/23 06/07/23 Unknown History aerosol inhaler (Ventolin HFA) fluticasone propionate 50 spray intranasal 06/07/23 06/07/23 Unknown History mcg/actuation nasal spray,suspension ipratropium bromide 42 mcg (0.06 intranasal 06/07/23 06/07/23 Unknown History %) nasal spray ketoconazole 2 % shampoo topical 06/07/23 06/07/23 Unknown History bupropion HCl 150 mg 24 hr tablet, 150 mg PO DAILY 01/24/25 01/24/25 01/24/25 History extended release Assessment and Plan Assessment Anesthesia Assessment: Chart Reviewed Final Anesthetic Review Family History of Problems with Anesthesia: No History of Problems with Anesthesia: No Documented by User: Dilcia Crowell DO 01/24/25 07:11 [facility] Past Medical History Medical History Mixed internal and external hemorrhoid Depression IUD (intrauterine device) in place History of asthma Family History Family History Mother Heart attack Stroke Family history of problems with anesthesia: No Surgical History Surgical History (Updated 01/24/25 @ 06:10 by Charlene Brown RN) H/O hemorrhoidectomy Hx of appendectomy Hx of gastric bypass Hx of shoulder surgery Hx of cholecystectomy History of Problems with Anesthesia: No Social History Social History Alcohol intake: current Patient Tobacco Use Status: Never used Tobacco Use of substances other than those prescribed or required for medical reasons: No Are you DNR?: No Advance Directives: No Advance Directives Information Provided: Yes Patient : No : No Poor oral hygiene: No Current occupational status: unemployed Current occupation: right handed Sexual orientation: Straight/Heterosexual Gender identity: Female Meds Allergies Allergy/AdvReac Type Severity Reaction Status Date / Time No Known Allergies (No Known Allergy Verified 12/26/24 14:10 Allergies*) Home Medications ?Medication ?Instructions ?Recorded ?Confirmed ?Last Taken ?Type clindamycin phosphate 1 % lotion topical QAM 12/21/20 06/07/23 Unknown History tretinoin 0.025 % topical cream appl topical DIRECTED 12/21/20 06/07/23 Unknown History levonorgestrel (Mirena) intrauterine 03/10/22 06/07/23 Unknown History albuterol sulfate 90 mcg/actuation inhalation 06/07/23 06/07/23 Unknown History aerosol inhaler (Ventolin HFA) fluticasone propionate 50 spray intranasal 06/07/23 06/07/23 Unknown History mcg/actuation nasal spray,suspension ipratropium bromide 42 mcg (0.06 intranasal 06/07/23 06/07/23 Unknown History %) nasal spray ketoconazole 2 % shampoo topical 06/07/23 06/07/23 Unknown History bupropion HCl 150 mg 24 hr tablet, 150 mg PO DAILY 01/24/25 01/24/25 01/24/25 History extended release Exam Exam Date and Time: 01/24/25 0710 Height,Weight and Vital Signs: Height 5 ft 1 in Weight 61.6 kg Vital Signs Temperature 98.5 F 01/24/25 06:22 Pulse Rate 75 01/24/25 06:22 Respiratory Rate 16 01/24/25 06:22 Blood Pressure 105/73 01/24/25 06:22 Pulse Oximetry 98 01/24/25 06:22 Oxygen Delivery Method Room Air 01/24/25 06:22 Temperature 98.5 F 01/24/25 06:22 Pulse Rate 75 01/24/25 06:22 Respiratory Rate 16 01/24/25 06:22 Blood Pressure 105/73 01/24/25 06:22 Pulse Oximetry 98 01/24/25 06:22 Oxygen Delivery Method Room Air 01/24/25 06:22 Airway Mallampati Class: I TM Dist: >3cm Neck ROM: Full Loose/Missing/Broken Teeth: No (patient denies any loose or broken teeth) Heart: S1S2 Lungs: CTAB Assessment and Plan Assessment Anesthesia Assessment: Anesthesia Plan Discussed and Chart Reviewed Final Anesthetic Review Family History of Problems with Anesthesia: No History of Problems with Anesthesia: No NPO: Yes ASA Class: II Final Preanesthetic Review: No Changes in Pt Med Stat, Meds/Allgs Chart Reviewed, Consent Obtained/Reviewed and Anes Risks/Benef Reviewed Patient Risk: Low Procedure Risk: Low Anesthetic Plan Anesthetic Plan: GA and Agree w/ Assess. and Plan Disposition: Standard PACU
--- NOTE | 2025-01-24 07:15 | MHC.SHP ---
Pre-Procedural Eval Section A - 24 Hr Update-Section A only Date of Service: 01/24/25 The patient is an INPATIENT: No Changes since office visit: No Cold of Flu in the past 2 weeks, No New Medical Problems, No Changes in Medication and No Patient answered all questions The patient has been examined within 24 hours of the surgical procedure. The History & Physical has been completed within 30 days and I have reviewed it.: Yes Section B - Complete if H&P > 30 days Chief Complaint: Residual hemorrhoidal skin tags Allergies: Allergies Allergy/AdvReac Type Severity Reaction Status Date / Time No Known Allergies (No Known Allergy Verified 12/26/24 14:10 Allergies*) Plan I have reviewed the history and physical and performed a pertinent physical examination on my patient. No changes have occurred unless specified. Time Spent With Patient Time: Total time managing care of this patient today ____ minutes.
--- NOTE | 2025-01-24 08:03 | W.PM.OPN ---
Operative Note Operative Note Date of Service: 01/24/25 Narrative: Preop diagnosis: Internal external hemorrhoids with prolapse and pain Postop diagnosis: The same Procedure: Exam under anesthesia, hemorrhoidectomy x2 columns Surgeon: Wan Finch MD Inspector Water Pollution Control: MAYELA Peralta student The patient is a 34 year old female with complaints of a long history of discomfort with the hemorrhoids with pain swelling and prolapse. She understood the technique of hemorrhoidectomy. She was aware of the risks, benefits, and alternatives. She was brought to the operating room. She was placed in prone garret-knife position under general anesthesia via endotracheal tube. The buttocks were retracted with wide tape laterally. The perianal area was prepped and draped in the usual sterile fashion. A surgical time-out was done. The patient received Cefotan 2 g IV preoperatively Examination of the anal orifice revealed an external hemorrhoid dull column on the left as well as in the right anterior. I infiltrated the perianal area with lidocaine 1% I inserted the Jil Gore retractor. I examined the anal canal circumferentially. Again these hemorrhoidal columns as described above were seen and were noted to have a mix of internal and external component I applied a Corrales grasper on the hemorrhoidal column on the left to retract this out in the field. I made a [id number] stitch at the pedicle past the dentate line with a chromic 3-0. I made an incision around this hemorrhoidal column to the perianal skin with a blade 15. I excised this hemorrhoidal column along this incision above the plane of the sphincters with scissors. I closed this incision with a running chromic 3-0 stitch with additional hemostatic xsnokp-[id number]-ljpbn sutures being placed for oozing areas A 2nd hemorrhoidal column on the right anterior was retracted with a Corrales grasper. This has mostly an external hemorrhoid. I made a heitaq-mj-yxcbw stitch at the pedicle. I made an incision around this column to the perianal skin with a blade 15. And excise this along this incision above the plane of the sphincters with scissors. I closed the incision with a running chromic 3-0 stitch as well There was another smaller hemorrhoidal column in the right side which we left There were no lesions on examination of the anal canal. There was no fissure ulceration This hemostasis was confirmed, I proceeded to infiltrate the perianal area with Marcaine 0.5% for postop analgesia. The procedure was then completed The patient tolerated the procedure well. There were no immediate complications. Initial and final counts of sponges and instruments were correct. Estimated blood loss about 25 cc The patient is extubated without difficulty and transferred to the recovery room with stable vital signs.
[2025-01-24] MEDS: oxyCODONE HCl Immed Release 5 MG TABLET PO (08:45)
== END 2025-01-24 10:34 | disposition home or self-care (01) ==
PROVIDERS: Nurse Practitioner; PCP Internal Medicine; Visit Provider Surgery
PROC: (CPT 46260; principal; 2025-01-24 07:30)
DX: K64.8 Other hemorrhoids (principal); K64.4 Residual hemorrhoidal skin tags; K59.09 Other constipation; K62.89 Other specified diseases of anus and rectum; F32.A Depression, unspecified; Z97.5 Presence of (intrauterine) contraceptive device; Z79.899 Other long term (current) drug therapy; Z98.84 Bariatric surgery status; Z56.0 Unemployment, unspecified; Z90.49 Acquired absence of other specified parts of digestive tract; Z98.890 Other specified postprocedural states
CPT/HCPCS: 46260; 81025; 88304; J0131; J1100; J1885; J2003; J2250; J2405; J2704; J2795; J3010

== ENCOUNTER → 2025-01-24 05:49 | Outpatient (BNV) | payer OTHER, SELFPAY | PROVIDERS: PCP Internal Medicine; Visit Provider Surgery | DX: K64.8 Other hemorrhoids (principal) | CPT/HCPCS: 46260 ==

== ENCOUNTER 2025-02-06 09:19 | Outpatient (AMB) | payer OTHER, SELFPAY ==
--- NOTE | 2025-02-06 09:25 | MHC.OFFVIS ---
Intake Visit Reasons: s/p hemorrhoidectomy Intake Note: This patient presents for post-op follow-up status post hemorrhoidectomy. Pt c/o; reports occasional rectal bleeding after bowel movements, reports diarrhea, reports no constipation, reports burning sensation after BM, swelling. Analog Ic Design Architect Required: No Accompanied by: Self / Same As Patient Allergies No Known Allergies (No Known Allergies*) Allergy (Verified 02/06/25 09:32) HPI HPI s/p hemorrhoidectomy: Details: She is here for postop visit after hemorrhoidectomy x2 columns from 2 weeks ago. She says doing very well. She feels her pain has improved significantly. She is very happy with the outcome. [facility] Medical History Mixed internal and external hemorrhoid Depression IUD (intrauterine device) in place History of asthma Surgical History H/O hemorrhoidectomy Hx of appendectomy Hx of gastric bypass Hx of shoulder surgery Hx of cholecystectomy Family History Mother Heart attack Stroke Social History Alcohol intake: current Comment: counts correct Patient Tobacco Use Status: Never used Tobacco Current occupational status: unemployed Current occupation: right handed Sexual orientation: Straight/Heterosexual Gender identity: Female Female Reproductive History Menstrual Age of Menarche: 11 Review of Systems Const Denies chills and Denies poor appetite Card Denies chest pain with activity GI Denies abdominal pain and Denies hematochezia Physical Exam Const General: comfortable and no acute distress Resp Effort & Inspection: normal respiratory effort GI Other: Rectal exam shows the hemorrhoidectomy sites to be well healed, with some residual edema, no signs of infection, induration, discharge Assessment & Plan Assessment & Plan (1) Mixed internal and external hemorrhoid: Code(s): K64.8 - Other hemorrhoids; K64.4 - Residual hemorrhoidal skin tags Category: Medical Plan: Status post hemorrhoidectomy. She is doing very well postoperatively. The surgical sites appear to be healing well and do not appear infected . I advised her to avoid straining constipation. She is to continue hot Sitz baths. I told her to come back to the office if she has any postop concerns. Her path report shows hemorrhoid tissue. Coding Level of Care Code Global (72595) Diagnoses Mixed internal and external hemorrhoid K64.8; K64.4
--- OUTSIDE RECORDS SUMMARY | 2025-02-06 10:21 | XMS_ITS | Clinical Summary ---
Author Organization [facility] Address [address] [place] [address] Phone Care Team Providers Care Veneer Puller Name Role Phone Irena Zeng MD Primary [...] Encounters Date Type Department Care Team Description 01/22/2025 2:30 PM EDT Immunization [facility] at [address] [place] [address] Gayathri Hamlin PA-C 01/16/2025 1:00 PM EDT Immunization [facility] at [address] [place] [address] Anel Ardon NP 01/11/2025 9:00 AM EDT Office Visit [facility] [address] [place] [address] [place], [place] Need for rabies vaccination (Primary Dx) from Last 3 Months Immunizations Immunization Administration Dates Next Due COVID-19 (Pre-03/06) Moderna Vaccine, mRNA, PF 08/04/2021 COVID-19 (Pre-03/06) Pfizer Vaccine, Bivalent 12+ 09/12/2022 COVID-19 (Pre) Pfizer Vaccine, mRNA, PF 02/01/2021,01/11/2021 Hepatitis B Adult 03/15/1995,08/13/1994,04/14/19 94 Influenza, Unspecified Formulation 01/26/2023 MMR 10/16/2020,01/13/1997 Rabies Fibroblast Culture 01/22/2025,08/2024,01/11/2025,2024 Tdap 11/26/2019 Varicella 12/03/2007,12/03/2002 Family History Medical [...] Additional history exists HIB VACCINES Completed 03/15/1995, 0405/1994, 04/14/1994 MENINGOCOCCAL VACCINES (ACWY) Aged Out 12/01/2006 [...] Devices Not on file Insurance Care Teams Veneer Puller Relationship Specialty Start Date End Date Irena Zeng MD [address] [place] [address] [place] [id number] PCP - General 05/12/22 Additional Source Comments The information contained in this document represents components of the legal health record. It is not the complete legal health record.[facility]
--- OUTSIDE RECORDS SUMMARY | 2025-02-06 10:21 | XMS_ITS | Clinical Summary ---
Author Organization [employer] Address [address] [facility] [place] [address] Care Team Providers Care Computer Systems Hardware Analyst Name Role Phone Provider, Not In System [...] 12/01/2006 Moderna Covid-19 Vaccine 12+ 08/04/2021 Novel [id number], all formulations 06/10/2009 Pfizer Covid-19 Vaccine 12+ [...] Most Recently Relevant to Health Maintenance Insurance [facility] MEDICAID STAND ADULT Care Teams Computer Systems Hardware Analyst Relationship Specialty Start Date End Date Provider, Not In System PCP - General 08/14/23
--- OUTSIDE RECORDS SUMMARY | 2025-02-06 10:21 | XMS_ITS | Clinical Summary ---
Author Organization [address] [place] [address] Address [address] [place] [address] Phone Care Team Providers Care Grain Loader Name Role Phone Irena Zeng MD Primary Care Provider [phone] Allergies No known active allergies Medications UNABLE [...] EDT - 01/09/2025 4:55 AM EDT Emergency [facility] Emergency [address] [place] [address] Discharge Disposition: Left Against Medical Advice 01/08/2025 9:14 AM EDT - 01/08/2025 11:04 AM EDT Emergency [facility] Emergency [address] [place] [address] Janeen Christopher MD Cat bite [...] PROCEDURE: HISTORICAL WISDOM TEETH EXTRACTION CHOLECYSTECTOMY PROCEDURE: [place] CHOLECYSTECTOMY; COMMENT: 2013 OTHER SURGICAL HISTORY 2017 [...] Grandmother Alive DM, HTN Mother Alive asthma, [place] age 34 during surgery for a clot [...] 11/25/2029 11/26/2019, 12/04/2018, 02/08/2012, Additional history exists RSV Immunization Adult Patients (1 - 1-dose 75+ series) 12/08/2067 HIB [...] LAB HEMETOLOGY METHOD 01/09/2025 1:56 AM EDT [facility] RBC 4.70 3.80 - 4.80 M/mcL LAB HEMETOLOGY METHOD 01/09/2025 1:56 AM EDT [facility] Hemoglobin 13.8 11.5 - 16.0 g/dL LAB HEMETOLOGY METHOD 01/09/2025 1:56 AM EDT [facility] Hematocrit 42.2 35.0 - 47.0 % LAB HEMETOLOGY METHOD 01/09/2025 1:56 AM [facility] MCV 90.4 79.0 - 98.0 FL LAB HEMETOLOGY METHOD 01/09/2025 1:56 AM [facility] MCH 29.6 27.0 - 32.0 pcg LAB HEMETOLOGY METHOD 01/09/2025 1:56 AM [facility] MCHC 32.7 32.0 - 37.0 g/dL LAB HEMETOLOGY METHOD 01/09/2025 1:56 AM [facility] RDW 12.6 11.0 - 15.0 % LAB HEMETOLOGY METHOD 01/09/2025 1:56 AM [facility] Platelets 192 130 - 400 K/mcL LAB HEMETOLOGY METHOD 01/09/2025 1:56 AM [facility] MPV 11.0 7.0 - 11.0 FL LAB HEMETOLOGY METHOD 01/09/2025 1:56 AM [facility] NRBC 0.0 <1.0 % LAB HEMETOLOGY METHOD 01/09/2025 1:56 AM [facility] NRBC Absolute 0.00 <0.10 K/mcL LAB HEMETOLOGY METHOD 01/09/2025 1:56 AM [facility] Neutrophils Relative 80.4 % LAB HEMETOLOGY METHOD 01/09/2025 1:56 AM [facility] Lymphocytes Relative 10.3 % LAB HEMETOLOGY METHOD 01/09/2025 1:56 AM [facility] Monocytes Relative 7.8 % LAB HEMETOLOGY METHOD 01/09/2025 1:56 AM [facility] Eosinophils Relative 0.7 % LAB HEMETOLOGY METHOD 01/09/2025 1:56 AM EDT [facility] Basophils Relative 0.5 % LAB HEMETOLOGY METHOD 01/09/2025 1:56 AM EDT [facility] Immature Granulocytes Relative 0.3 % LAB HEMETOLOGY METHOD 01/09/2025 1:56 AM EDT [facility] Neutrophils Absolute 8.81(H) 1.50 - 7.00 K/mcL LAB HEMETOLOGY METHOD 01/09/2025 1:56 AM EDT [facility] Lymphocytes Absolute 1.13 1.00 - 5.00 K/mcL LAB HEMETOLOGY METHOD 01/09/2025 1:56 AM EDT [facility] Monocytes Absolute 0.86 0.20 - 1.00 K/mcL LAB HEMETOLOGY METHOD 01/09/2025 1:56 AM EDT [facility] Eosinophils Absolute 0.08 0.00 - 0.50 K/mcL LAB HEMETOLOGY METHOD 01/09/2025 1:56 AM EDT [facility] Basophils Absolute 0.06 0.00 - 0.20 K/mcL LAB HEMETOLOGY METHOD 01/09/2025 1:56 AM EDT [facility] Immature Granulocytes Absolute 0.03 0.00 - 0.03 K/mcL LAB HEMETOLOGY METHOD 01/09/2025 1:56 AM EDT [facility] Blood Venous blood specimen / Unknown Venipuncture / Unknown 01/09/2025 1:24 AM EDT 01/09/2025 1:49 AM EDT us Bettina Tellez PANTOMIMIST LAB BLOOD ORDERABLES Tia salas Result [facility] [address] [place] [address], * Blood Culture, Peripheral #2 (01/09/2025 1:24 AM EDT) Only the most recent of2 resultswithin the time period is included. Culture, Blood No growth at 5 days LAB MICROBIOLOGY METHOD 01/14/2025 6:01 AM EDT [facility] Blood Venous blood specimen / Unknown Venipuncture / Unknown 01/09/2025 1:24 AM EDT 01/09/2025 1:50 AM EDT Bettina Tellez NP LAB MICROBIOLOGY - GENERA L ORDERABLES Final Result Performing Organization Address [facility]/ZIP Co de Phone Number [facility] [address] [place] [address], [place] [phone] * (ABNORMAL) C-reactive protein (01/09/2025 1:24 AM EDT) [facility] C-Reactive Protein 0.91(H) <=0.50 mg/dL LAB CHEMISTRY METHOD 01/09/2025 2:15 AM EDT [facility] Blood Venous blood specimen / Unknown Venipuncture / Unknown 01/09/2025 1:24 AM EDT 01/09/2025 1:49 AM EDT Bettina Tellez NP LAB BLOOD ORDERABLES Tia l Result Performing Organization Address City/[facility]/ZIP Co de Phone Number [facility] [address] [place] [address], [place] [phone] * (ABNORMAL) Comprehensive Metabolic Panel (CMP) (01/09/2025 1:24 AM EDT) [facility] Sodium 139 133 - 145 mmol/L LAB CHEMISTRY METHOD 01/09/2025 2:15 AM EDT [facility] Potassium 3.7 3.5 - 5.5 mmol/L LAB CHEMISTRY METHOD 01/09/2025 2:15 AM EDT [facility] Chloride 109 96 - 110 mmol/L LAB CHEMISTRY METHOD 01/09/2025 2:15 AM [facility] CO2 25 21 - 32 mmol/L LAB CHEMISTRY METHOD 01/09/2025 2:15 AM [facility] Anion Gap 5 3 - 11 LAB CHEMISTRY METHOD 01/09/2025 2:15 AM [facility] Glucose 106(H) 70 - 100 mg/dL LAB CHEMISTRY METHOD 01/09/2025 2:15 AM [facility] BUN 14 5 - 25 mg/dL LAB CHEMISTRY METHOD 01/09/2025 2:15 AM [facility] Creatinine 0.77 0.50 - 1.10 mg/dL LAB CHEMISTRY METHOD 01/09/2025 2:15 AM [facility] eGFR 105 >=60 mL/min/1. 73m2 LAB CHEMISTRY METHOD 01/09/2025 2:15 AM [facility] Comment:Calculation based on the Chronic Kidney Disease Epidemiology Collaboration (CKD-EPI) equation refit without adjustment for race. BUN/Creatinine Ratio 18.2 LAB CHEMISTRY METHOD 01/09/2025 2:15 AM [facility] Calcium 8.9 8.5 - 10.5 mg/dL LAB CHEMISTRY METHOD 01/09/2025 2:15 AM [facility] AST (SGOT) 12 10 - 42 unit/L LAB CHEMISTRY METHOD 01/09/2025 2:15 AM [facility] ALT (SGPT) 22 10 - 60 unit/L LAB CHEMISTRY METHOD 01/09/2025 2:15 AM [facility] Alkaline Phosphatase 101 42 - 121 unit/L LAB CHEMISTRY METHOD 01/09/2025 2:15 AM [facility] Total Protein 7.2 6.0 - 8.0 g/dL LAB CHEMISTRY METHOD 01/09/2025 2:15 AM EDT [facility] Albumin 4.1 3.2 - 5.0 g/dL LAB CHEMISTRY METHOD 01/09/2025 2:[address] [facility] Total Bilirubin 0.3 0.0 - 1.4 mg/dL LAB CHEMISTRY METHOD 01/09/2025 2:[address] [facility] Blood Venous blood specimen / Unknown Venipuncture / Unknown 01/09/2025 1:24 AM EDT 01/09/2025 1:49 AM EDT Bettina Tellez NP LAB BLOOD ORDERABLES Tia l Result [facility] ([facility]) [facility] [address] [place] [address], * Lipid panel (06/13/2022) [facility] LDL/HDL Ratio 4 0 - 4 Triglycerides 136 0 - 150 mg/dL Cholesterol 151 0 - 200 mg/dL HDL 43 >=40 mg/dL LDL Cholesterol 81 0 - 100 mg/dL Blood Venous blood specimen / Unknown Result [facility] Provider LAB BLOOD ORDERABLES Tia l Result * Pap Smear (02/11/2016) [facility] Pap smear abstracted, no interpretation Historical Provider HEALTH MAINTENANCE Final Result * HIV Screening (12/26/2012) [facility] HIV Screening abstracted Historical Provider HEALTH MAINTENANCE Final Result * Hepatitis C Screening (12/26/2012) [facility] Hepatitis C Screening abstracted Historical Provider HEALTH MAINTENANCE Final Result from Last 3 Months or Most Recently Relevant to Health Maintenance Insurance [facility] [employer] REGINALDO MONTILLA [id number] Care Teams Grain Loader Relationship Specialty Start Date End Date Irena Zeng MD [facility] [address] PCP - General Internal Medicine 06/26/18
== END 2025-02-06 09:55 | disposition home or self-care (01) ==
LOC: HO.HGS 09:20
PROVIDERS: PCP Internal Medicine; Visit Provider Surgery
DX: K64.8 Other hemorrhoids (principal); K64.4 Residual hemorrhoidal skin tags
CPT/HCPCS: 99024

== ENCOUNTER → 2025-02-06 09:19 | Outpatient (BNVA) | payer OTHER, SELFPAY | PROVIDERS: PCP Internal Medicine; Visit Provider Surgery | DX: Z98.890 Other specified postprocedural states (principal); K64.4 Residual hemorrhoidal skin tags; K64.8 Other hemorrhoids | CPT/HCPCS: 99212 ==